=== PATIENT | female | born 1960 | race Caucasian/White ===

== ENCOUNTER → 2019-11-10 12:21 | Outpatient (CLI) | payer BC, SELFPAY ==
--- NOTE | ~2019-11-10 | MM_ITS ---
EXAMINATION: MM screening constance BI w artur HISTORY: Screening TECHNIQUE: Craniocaudal and mediolateral oblique 3-D tomosynthesis images were obtained and synthetic 2-D images were generated. CAD analysis was submitted and interpreted. COMPARISON: Comparison to multiple prior studies sequentially, with oldest reviewed study dated 05/2011. BREAST PARENCHYMAL COMPOSITION: There are scattered areas of fibroglandular density. FINDINGS: There is no evidence of suspicious mass, calcification, or architectural distortion to sugg est malignancy in either breast. There has been no suspicious interval change. IMPRESSION: 1. No mammographic evidence of malignancy. 2. Recommend routine screening mammography in one year. BI-RADS Category 1: Negative Reviewed, dictated and finalized at location A.
== END ==
PROVIDERS: PCP Internal Medicine; Visit Provider Internal Medicine
DX: Z12.31 Encounter for screening mammogram for malignant neoplasm of breast (principal)
CPT/HCPCS: 77063; 77067

== ENCOUNTER → 2020-11-24 10:11 | Outpatient (CLI) | payer BC, SELFPAY ==
--- NOTE | ~2020-11-24 | MM_ITS ---
EXAMINATION: MM screening constance BI w artur HISTORY: Screening mammogram TECHNIQUE: Craniocaudal and mediolateral oblique 3-D tomosynthesis images were obtained and synthetic 2-D images were generated. CAD analysis was submitted and interpreted. COMPARISON: 11/10/2019, 09/02/2018, 07/25/2017 bilateral digital screening mammogram examinations BREAST PARENCHYMAL COMPOSITION: There are scattered areas of fibroglandular density... FINDINGS: Stable bilateral probable intramammary lymph nodes. There is no evidence of suspicious mass , calcification, or architectural distortion to suggest malignancy in either breast. There has been n o suspicious interval change. IMPRESSION: 1. No mammographic evidence of malignancy. 2. Recommend routine screening mammography in one year. BI-RADS Category 2: Benign finding(s). Reviewed, dictated and finalized at location A.
--- NOTE | ~2020-11-24 | DEXA_ITS ---
Bone Density Report Name: Erna Yu Age: 60 Sex: Female Ethnicity: White Date of : 1960 Indication: postmenopausal; screening for osteoporosis; height loss; Referring Provider: JUANCARLOS, KATT Miramontes Study: Bone densitometry was performed. Exam Date: November 24, 2020 Accession number: [id number] Bone Density: Region BMD T-score Z-score Classification AP Spine (L1-L4) 1.034 -0.1 1.3 Normal Femoral Neck (Left) 0.868 0.2 1.4 Normal Total Hip (Left) 1.019 0.6 1.6 Normal Femoral Neck (Right) 0.858 0.1 1.3 Normal Total Hip (Right) 0.977 0.3 1.2 Normal Total Hip Mean 0.998 0.5 1.4 Normal World Health Organization criteria for BMD impression classify patients as: Normal (T-score at or above -1.0), Osteopenia (T-score between -1.0 and -2.5), or Osteoporosis (T-score at or below -2.5). 10-year Fracture Risk: FRAX not reported because: All T-scores for Spine Total, Hip Total, Femoral Neck at or above -1.0 Clinical Information Provided by Patient: Patient maximum height was 69 Menopause Age: 57 Drinks caffeinated beverages Onset of menses at age 12 Number of children 4 Impression: The patient has normal bone mass. Discussion: BONE DENSITY IS ABOVE THE MINIMUM DESIRABLE LEVEL AT ALL SKELETAL SITES TESTED. This patient?s bone mineral density is above the minimum desirable level (T-score -1.0 or better) at all sites measured. The patient should follow a healthful lifestyle (good nutrition with adequate calcium and vitamin D, and appropriate weight-bearing exercise). Follow-Up: Consider repeating this study in 5 years or sooner if there is some new clinical indication. Reported by: JONO on 11/24/2020 10:35:00 AM. Reviewed, dictated and finalized at location A. [facility]
== END ==
PROVIDERS: PCP Internal Medicine; Visit Provider Internal Medicine
DX: Z12.31 Encounter for screening mammogram for malignant neoplasm of breast (principal); Z78.0 Asymptomatic menopausal state
CPT/HCPCS: 77063; 77067; 77080

== ENCOUNTER → 2021-12-07 15:44 | Outpatient (CLI) | payer BC, SELFPAY ==
--- NOTE | ~2021-12-07 | MM_ITS ---
EXAMINATION: MM screening constance BI w artur HISTORY: Screening TECHNIQUE: Craniocaudal and mediolateral oblique 3-D tomosynthesis images were obtained and synthetic 2-D images were generated. CAD analysis was submitted and interpreted. COMPARISON: Comparison to multiple prior studies sequentially, with oldest reviewed study dated 07/25. BREAST PARENCHYMAL COMPOSITION: There are scattered areas of fibroglandular density. FINDINGS: There is no evidence of suspicious mass, calcification, or architectural distortion to sugg est malignancy in either breast. There has been no suspicious interval change. IMPRESSION: 1. No mammographic evidence of malignancy. 2. Recommend routine screening mammography in one year. BI-RADS Category 1: Negative Reviewed, dictated and finalized at location A.
== END ==
PROVIDERS: PCP Internal Medicine; Visit Provider Internal Medicine
DX: Z12.31 Encounter for screening mammogram for malignant neoplasm of breast (principal)
CPT/HCPCS: 77063; 77067

== ENCOUNTER → 2022-12-11 15:44 | Outpatient (CLI) | payer BC, SELFPAY ==
--- NOTE | ~2022-12-11 | MM_ITS ---
EXAMINATION: MM screening constance BI w artur HISTORY: Screening TECHNIQUE: Craniocaudal and mediolateral oblique 3-D tomosynthesis images were obtained and synthetic 2-D images were generated. CAD analysis was submitted and interpreted. COMPARISON: Comparison to multiple prior studies sequentially, with oldest reviewed study dated 07/25. BREAST PARENCHYMAL COMPOSITION: There are scattered areas of fibroglandular density. FINDINGS: There is no evidence of suspicious mass, calcification, or architectural distortion to sugg est malignancy in either breast. There has been no suspicious interval change. IMPRESSION: 1. No mammographic evidence of malignancy. 2. Recommend routine screening mammography in one year. BI-RADS Category 1: Negative Reviewed, dictated and finalized at location A. THERAPIST
== END ==
PROVIDERS: PCP Internal Medicine; Visit Provider Internal Medicine
DX: Z12.31 Encounter for screening mammogram for malignant neoplasm of breast (principal)
CPT/HCPCS: 77063; 77067

== ENCOUNTER 2023-02-26 02:52 | Day surgery (SDC) | payer BC, SELFPAY ==
[2023-02-23 14:58] VITALS: BMI 32.5
[2023-02-26] VITALS (10 sets, daily range): BP systolic 97–125; BP diastolic 55–83; PULSE 82–116; RESP 12–28; TEMP 36.4; O2SAT 95–99
[2023-02-26 10:10] LABS: Basophils Percent Auto 0.5 % (0.2-1.2); Eosinophils Absolute Auto 0.1 K/mm3 (0-0.3); Eosinophils Percent Auto 1.1 % (0-4.4); Hematocrit 44.2 % (37.0-47.0); Hemoglobin 14.3 g/dL (12.0-15.0); Immature Granulocyte Absolute 0.02 K/mm3 (0.00-0.031); Immature Granulocyte Percent A 0.2 % (0-0.5); Lymphocytes Absolute Auto 1.96 K/mm3 (0.9-3.2); Lymphocytes Percent Auto 23.3 % (18.3-44.2); Mean Corpuscular HGB Conc 32.4 g/dl (32-36); Mean Corpuscular Hemoglobin 30.4 pg (26-34); Mean Corpuscular Volume 93.8 fl (80-100); Mean Platelet Volume 10.3 fl (7.4-10.4); Monocytes Absolute Auto 0.7 K/mm3 (0.1-0.6); Monocytes Percent Auto 7.9 % (2.6-8.5); Neutrophils Absolute Auto 5.7 K/mm3 (1.3-6.7); Platelet Count Result 361 k/mm3 (150-375); Red Blood Count 4.71 M/mm3 (4.2-5.4); Red Cell Distribution Width 13.2 % (11.5-14.5); White Blood Count 8.4 K/mm3 (4.5-10.0)
[2023-02-26 10:20] LABS: Magnesium 1.8 mg/dL (1.6-2.3)
[2023-02-26 10:25] LABS: Anion Gap 8 mmol/L (8-16); Blood Urea Nitrogen 17 mg/dL (7-17); Calcium 9.4 mg/dL (8.4-10.2); Carbon Dioxide 27 mmol/L (22-30); Chloride 105 mmol/L (98-107); Estimated CRCL calculation 105 ml/min; Estimated Glomerular Filt Rate > 60; Glucose 109 mg/dL (65-110); Potassium 4.2 mmol/L (3.4-5.0); Sodium 140 mmol/L (137-145)
--- NOTE | 2023-02-26 10:35 | WPDMODSED ---
Moderate Sedation Note-Pt Data Patient Data Diagnosis: Atrial fibrillation Present Complaint: atrial fibrillation Procedure to be performed/Plan: 1. Multiplanar transesophageal echocardiography with color flow, pulse wave Doppler 2. Moderate sedation 3. Electrical cardioversion 4. agitated saline study Allergies Allergy/AdvReac Type Severity Reaction Status Date / Time Penicillins Allergy Mild Hives Verified 02/26/23 09:49 Home Medications Medication Instructions Recorded Confirmed Type metoprolol tartrate 25 mg tablet 25 mg PO BID 02/23/23 02/23/23 History rivaroxaban 20 mg tablet 20 mg PO DAILY 02/23/23 02/23/23 History Current Medications: Active Medications Sodium Chloride (Normal Saline Iv) 1,000 mls @ 30 mls/hr IV CONT .Q24H EMMA Sedation/Anesthesia: No previous sedation/anesthesia problems (including family history). [facility] Past Medical History Medical History Encounter for screening colonoscopy Epigastric pain LUQ pain Social History Social History Smoking status: Never smoker Second hand tobacco smoke exposure: Yes Alcohol intake: current Alcohol use details: 1 drink every 2-3 months Substance use: never Living arrangements: with family Occupation/Education: occupation Gender identity (if verbalized by the patient): Female Spiritual care concerns: No Mod Sed Physical Exam Physical Exam Pre Procedural Exam: Normal: Appearance, Eyes, Ears, Nose, Neck, Throat, Airway, Lungs, Heart Size, Heart Rate, Neuro Exam, Abdomen, Extremities and Skin and Variation: Heart Rhythm ( Irregular irregular) Hours since solid foods: 12 Hours since liquid intake: 12 Mallampati Classification: class II Internal Medicine - PN: Obj Da Vital Signs Vital Signs: Vital Signs - 24 hr 02/26/23 10:04 Temperature 36.4 C Pulse Rate 97 Respiratory Rate 15 Blood Pressure 123/81 Pulse Oximetry 99 Oxygen Delivery Room Air Meds/Results Medications: Active Medications Generic Name Dose Route Start Last Admin Trade Name Freq PRN Reason Stop Dose Admin Sodium Chloride 1,000 mls @ 30 mls/hr 02/26/23 10:00 Normal Saline Iv IV CONT .Q24H EMMA Labs 02/26/23 10:04 02/26/23 10:04 Labs: Laboratory Results - last 24 hr 02/26/23 10:04 WBC 8.4 RBC 4.71 Hgb 14.3 Hct 44.2 MCV 93.8 MCH 30.4 MCHC 32.4 RDW 13.2 Plt Count 361 MPV 10.3 Immature Gran % (Auto) 0.2 Neut % (Auto) 67.0 Lymph % (Auto) 23.3 [place] % (Auto) 7.9 Eos % (Auto) 1.1 Baso % (Auto) 0.5 Lymph # (Auto) 1.96 [place] # (Auto) 0.7 H Eos # (Auto) 0.1 Baso # (Auto) 0.0 Abs Immat Gran (auto) 0.02 Absolute Neuts (auto) 5.7 Absolute Nucleated RBC 0.0 Nucleated RBC % 0.0 Sodium 140 Potassium 4.2 Chloride 105 Carbon Dioxide 27 Anion Gap 8 BUN 17 Creatinine 0.60 L Estim Creat Clear Calc 105 Estimated GFR > 60 Glucose 109 Calcium 9.4 Magnesium 1.8 ASA Classification/Sedation ASA Classification/Sedation ASA Class: II Emergent: No Risks: Risks, benefits and alternatives explained and patient/family accepted plan for sedation. Patient re-evaluated immediately prior to sedation.
--- NOTE | 2023-02-26 11:01 | P.PCNTEECA_ITS ---
RALPH with Cardioversion Date of procedure: 02/26/23 Procedure Type: 1. Multiplanar transesophageal echocardiography with color flow and pulsed wave Doppler 2. Agitated saline study 3. Moderate sedation 4. electrical cardioversion Diagnosis: atrial fibrillation Indications: Atrial fibrillation Description of Procedure: after discussing the risks, benefits alternatives of the procedure patient agreeable via verbal and written informed consent. Risks discussed included esophageal rupture perforation, , stroke, surgery, bleeding, pain, infection, sore throat, skin irritation or burn from the shocked, shocking into more problematic heart rhythm. After time-out was taken after establishing continuous air sampling and monitoring, pulse oxygenation in serial blood pressure assessments, procedure was initiated. Sedation: Hurricaine spray to the hypopharynx x2. 6 mg of Versed and 100 mcg of fentanyl given in divided dosages Procedure start time 10:39 a.m. Procedure stop time 10:55 a.m. Complications: None Blood loss: None Medications were administered patient was monitored by Lilliam dixon RN Findings: RALPH: Normal left ventricular size and function with ejection fraction visually estimated around 60%. Normal right ventricular size and function. Normal right atrial size. Moderate left atrial enlargement. Normal mitral valve with mild mitral regurgitation. Normal tricuspid valve with mild tricuspid regurgitation. The aortic valve is trileaflet and normal with trivial aortic insufficiency. Pulmonic valve is normal with trivial pulmonic insufficiency. No pericardial effusion. Aortic root is normal in size measuring 2.6 cm. Atrial septum is intact without agitated saline or color flow evidence of shunting. left atrial appendage is normal without mass or thrombus in pulse-wave velocities of up to Seventy-five centimeters/second. Cardioversion: After adequate sedation was again confirmed, 150 joules of biphasic synchronized energy was used which did temporarily restore sinus rhythm but then she reverted quickly back into atrial fibrillation. Another 150 joules was used without any success. One last attempt was made using 200 joules of biphasic synchronized energy which again was temporarily successful but ulti mately she reverted back into atrial fibrillation. Conclusion: 1. Normal left ventricular size and function ejection fraction 60% 2. Mild mitral and tricuspid regurgitation 3. Intact atrial septum with negative agitated saline study 4. Normal left atrial appendage without evidence of mass or thrombus 5. 3 attempts at electrical cardioversion were made with only temporary success. 6. Moderate sedation 7. Moderate left atrial enlargement
--- NOTE | 2023-02-26 11:30 | ECG_ITS ---
Measurements Intervals [place] Rate: 102 P: TX: 0 QRS: -33 QRSD: 124 T: 63 QT: 329 QTc: 430 Interpretive Statements ATRIAL FIBRILLATION WITH RAPID VENTRICULAR RESPONSE LEFT AXIS DEVIATION INTRAVENTRICULAR CONDUCTION DELAY CANNOT RULE OUT SEPTAL INFARCT, AGE INDETERMINATE BASELINE ARTIFACT- I, II, III, AVR, AVL, AVF, V1 ABNORMAL ECG NO PREVIOUS ECG AVAILABLE FOR COMPARISON Electronically Signed On 02-26-2023 11:47:31 CAREER AGENT by Jermaine Ibrahim D.O.
== END 2023-02-26 12:08 | disposition home or self-care (01) ==
PROVIDERS: PCP Internal Medicine; Visit Provider Internal Medicine Cardiovascular Disease
PROC: (CPT 93312; principal; 2023-02-26 11:30)
PROC: 5A2204Z Restoration of Cardiac Rhythm, Single (ICD-10-PCS; 2023-02-26 11:30)
DX: I48.91 Unspecified atrial fibrillation (principal); I08.1 Rheumatic disorders of both mitral and tricuspid valves; Z79.01 Long term (current) use of anticoagulants
CPT/HCPCS: 36415; 80048; 83735; 85025; 92960; 93312; 93320; 93325; J2250; J3010; J7030

== ENCOUNTER 2023-05-17 08:55 | Outpatient (CLI) | payer BC, SELFPAY ==
--- NOTE | 2023-05-23 18:01 | WPDHOMESLEEP ---
Sleep Study - Home Unattended Date of Study: 05/17/23 Ordering Provider: Allen De Souza MD Interpreting Provider: Marielle Stevenson, DO Home Sleep Study Type: Watch PAT Height: 1.73 m Weight: 98.43 kg Body Mass Index: 33.0 Neck Circumference (inches): 14.5 Tucker: 2 Reason for Sleep Study Palpitations Sleep History The patient is a 62-year-old female with atrial fibrillation, moderate biatrial enlargement and obesity that had a sleep study ordered by her gaggerman for evaluation of sleep apnea. The patient denies awakening from sleep short of breath. She denies awakening at night with heartburn, belching or cough. She occasionally has trouble sleeping when she has a cold. She denies waking up gasping for air throughout the night. She denies having breathing problems at night observed by herself or others. She rarely sweats excessively at night. She denies having heart palpitations or irregular heartbeats during the night. She denies falling asleep during the day and while driving. She denies sleep paralysis, cataplexy and hypnagogic / hypnopompic hallucinations. She denies having trouble at school or work due to sleepiness. She denies feeling afraid of going to sleep. She denies having nightmares. She occasionally remembers her dreams. She rarely has thoughts racing through her mind. She rarely feels sad or depressed. She occasionally has anxiety. She denies having muscular tension. She denies noticing parts of her body jerk. She denies kicking during the night. She denies having crawling and aching feelings in her legs. She rarely has leg pain during the night. He denies grinding her teeth during sleep and denies awakening with morning jaw pain. She is rarely bothered by pain during the day and rarely awakened by pain during the night. She denies waking up feeling stiff in the morning. She rarely wakes up with sore or achy muscles. She rarely wakes up with pain in the neck, spine and other joints. She goes to bed at 10:00 p.m. on weekdays and between 10:30-11 p.m. on the weekends. It takes her 30 minutes to fall asleep. She wakes up once throughout the night to urinate and is able fall back asleep within 10-30 minutes. She wakes up at 5:15 a.m. on weekdays and at 6:00 a.m. on the weekends. She typically gets 7-7.5 hours of sleep per night. She will stay in bed for 15 minutes after waking up in the morning. She currently lives with her and 2 adult children. She will consume AD caffeinated beverage 2 hours before going to bed. She denies engaging in physical exercise before bedtime. She will watch television before falling asleep. She denies taking naps in the afternoon or the evening. She will have 3 decaffeinated beverages per day. She denies alcohol, tobacco and recreational drug use. [facility] Past Medical History Medical History Encounter for screening colonoscopy Epigastric pain LUQ pain Social History Social History Smoking status: Never smoker Second hand tobacco smoke exposure: Yes Alcohol intake: current Alcohol use details: 1 drink every 2-3 months Substance use: never Living arrangements: with family Occupation/Education: occupation Gender identity (if verbalized by the patient): Female Spiritual care concerns: No Medications Home Medications Medication Instructions Recorded Confirmed Type metoprolol tartrate 25 mg tablet 25 mg PO BID 02/23/23 05/23/23 History rivaroxaban 20 mg tablet 20 mg PO DAILY 02/23/23 05/23/23 History dronedarone 400 mg tablet (Multaq) 400 mg PO DAILY 05/23/23 05/23/23 History Sleep Procedure The sleep study was completed using TrendUT a technically adequate device with seven channels: peripheral arterial tone, actigraphy, body position, snore, respiratory movement, pulse oximetry, sleep staging, and heart rate. P
[2023-05-23 18:03] VITALS: BMI 33.0
== END 2023-05-21 07:30 | disposition home or self-care (01) ==
LOC: ANHCSM 08:57
PROVIDERS: PCP Internal Medicine; Visit Provider Internal Medicine Cardiovascular Disease
DX: I48.19 Other persistent atrial fibrillation (principal); G47.10 Hypersomnia, unspecified; I48.91 Unspecified atrial fibrillation
CPT/HCPCS: 95800

== ENCOUNTER 2023-05-24 00:51 | Day surgery (SDC) | payer BC, SELFPAY ==
[2023-05-23 14:11] VITALS: BMI 32.1
[2023-05-24] VITALS (11 sets, daily range): BP systolic 97–129; BP diastolic 54–90; PULSE 62–90; RESP 12–21; TEMP 36.8; O2SAT 97–100; BMI 32.6
--- NOTE | 2023-05-24 07:00 | ECG_ITS ---
SEE SCANNED COPY FOR CONFIRMED REPORT MTDD
[2023-05-24 08:04] LABS: Alanine Aminotransferase 63 U/L (6-35); Albumin Level 4.6 g/dL (3.5-5.1); Alkaline Phosphatase 86 U/L (38-126); Anion Gap 5 mmol/L (4-12); Aspartate Amino Transferase 38 U/L (14-36); Bilirubin,Total 0.8 mg/dL (0.2-1.3); Blood Urea Nitrogen 15 mg/dL (7-17); Calcium 9.6 mg/dL (8.4-10.2); Carbon Dioxide 29 mmol/L (22-30); Chloride 105 mmol/L (98-107); Estimated CRCL calculation 90 ml/min; Estimated Glomerular Filt Rate > 60; Glucose 105 mg/dL (65-110); Magnesium 1.9 mg/dL (1.6-2.3); Potassium 3.9 mmol/L (3.4-5.0); Sodium 139 mmol/L (137-145)
[2023-05-24] MEDS: SODIUM CHLORIDE 0.9% IV 1,000 ML 30 ML IV CONT (08:09)
--- NOTE | 2023-05-24 08:56 | WPDMODSED ---
Moderate Sedation Note-Pt Data Patient Data Diagnosis: Atrial fibrillation Present Complaint: Atrial fibrillation Procedure to be performed/Plan: Electrical cardioversion Moderate sedation Allergies Allergy/AdvReac Type Severity Reaction Status Date / Time Penicillins Allergy Mild Hives Verified 02/26/23 09:49 Home Medications Medication Instructions Recorded Confirmed Type metoprolol tartrate 25 mg tablet 25 mg PO BID 02/23/23 05/23/23 History rivaroxaban 20 mg tablet 20 mg PO DAILY 02/23/23 05/24/23 History dronedarone 400 mg tablet (Multaq) 400 mg PO DAILY 05/23/23 05/24/23 History Current Medications: Active Medications Sodium Chloride (Normal Saline Iv) 1,000 mls @ 30 mls/hr IV CONT .Q24H EMMA Last Admin: 05/24/23 08:09 Dose: 30 mls/hr Sedation/Anesthesia: No previous sedation/anesthesia problems (including family history). [facility] Past Medical History Medical History Encounter for screening colonoscopy Epigastric pain LUQ pain Social History Social History Smoking status: Never smoker Second hand tobacco smoke exposure: Yes Alcohol intake: current Alcohol use details: 1 drink every 2-3 months Substance use: never Living arrangements: with family Occupation/Education: occupation Gender identity (if verbalized by the patient): Female Spiritual care concerns: No Mod Sed Physical Exam Physical Exam Pre Procedural Exam: Normal: Appearance, Eyes, Ears, Nose, Neck, Throat, Airway, Lungs, Heart Size, Heart Rate, Neuro Exam, Abdomen, Extremities and Skin and Variation: Heart Rhythm (Irregular irregular) Hours since solid foods: 12 Hours since liquid intake: 12 Mallampati Classification: class II Internal Medicine - PN: Obj Da Vital Signs Vital Signs: Vital Signs - 24 hr 05/24/23 07:00 Temperature 36.8 C Pulse Rate 77 Respiratory Rate 18 Blood Pressure 129/90 Pulse Oximetry 99 Oxygen Delivery Room Air Intake/Output Intake/Output: Intake & Output 05/21/23 05/22/23 05/23/23 05/24/23 23:59 23:59 23:59 23:59 Output Total 0 Balance 0 Meds/Results Medications: Active Medications Generic Name Dose Route Start Last Admin Trade Name Freq PRN Reason Stop Dose Admin Sodium Chloride 1,000 mls @ 30 mls/hr 05/24/23 07:00 05/24/23 08:09 Normal Saline Iv IV CONT 30 mls/hr .Q24H EMMA Administration Labs 05/24/23 07:42 Labs: Laboratory Results - last 24 hr 05/24/23 07:42 Sodium 139 Potassium 3.9 Chloride 105 Carbon Dioxide 29 Anion Gap 5 BUN 15 Creatinine 0.70 Estim Creat Clear Calc 90 Estimated GFR > 60 Glucose 105 Calcium 9.6 Magnesium 1.9 Total Bilirubin 0.8 AST 38 H ALT 63 H Alkaline Phosphatase 86 Total Protein 8.0 Albumin 4.6 ASA Classification/Sedation ASA Classification/Sedation ASA Class: II Emergent: No Risks: Risks, benefits and alternatives explained and patient/family accepted plan for sedation. Patient re-evaluated immediately prior to sedation.
--- NOTE | 2023-05-24 09:23 | P.PCNCVR_ITS ---
Cardioversion Cardioversion Date of procedure: 05/24/23 Procedure: Electrical cardioversion Moderate sedation Pre-op diagnosis: Atrial fibrillation Post-op diagnosis: Same Indications: Atrial fibrillation Description of procedure: After discussing the risks, benefits alternatives and she patient agreeable via verbal and written informed consent. Risks discussed included skin irritation or burn, shocking into more problematic heart rhythm, adverse reaction anesthesia, , stroke. After establishing continuous technical director, pulse oxygenation in serial blood pressure assessments, procedure started Procedure start time 9:01 a.m. Procedure stop time 9:23 a.m. Complications none Blood loss none Sedation: A total of 7 mg of Versed and 150 mcg of fentanyl given in divided dosages. Medications were administered and patient was monitored by Humera Aparicio RN Findings: Two attempts were made at restoring sinus rhythm. First attempt was only temporarily successful. Second attempt was not successful at all. One hundred fifty joules of synchronized biphasic energy was utilized on the 1st attempt and then 200 joules was used on the 2nd attempt. Conclusion: Unsuccessful electrical cardioversion in the attempts at restoring sinus rhythm from atrial fibrillation.
== END 2023-05-24 10:31 | disposition home or self-care (01) ==
PROVIDERS: PCP Internal Medicine; Visit Provider Internal Medicine Cardiovascular Disease
PROC: 5A2204Z Restoration of Cardiac Rhythm, Single (ICD-10-PCS; principal; 2023-05-24 08:30)
DX: I48.19 Other persistent atrial fibrillation (principal); G47.10 Hypersomnia, unspecified; E66.9 Obesity, unspecified; Z68.32 Body mass index [BMI] 32.0-32.9, adult; Z79.01 Long term (current) use of anticoagulants; Z79.1 Long term (current) use of non-steroidal anti-inflammatories (NSAID); Z82.49 Family history of ischemic heart disease and other diseases of the circulatory system
CPT/HCPCS: 36415; 80053; 83735; 92960; J2250; J3010; J7030

== ENCOUNTER 2023-08-09 11:00 | Emergency (ER) | payer BC, SELFPAY ==
[2023-08-09 11:01] VITALS: BP 121/69; PULSE 65; RESP 18; TEMP 36.7; O2SAT 97
--- NOTE | 2023-08-09 12:36 | ED.DENTAL ---
HPI - Dental/Oral General Chief complaint: Dental/Oral Stated complaint: dental abscess Time Seen by Provider: 08/09/23 12:06 History of Present Illness HPI Narrative: Patient is a 63-year-old female who presents to the emergency department this afternoon concerned for a dental abscess. Patient states that a few days ago she noted an abscess in her right lower premolar lesion. Patient states that since then the abscess was significantly much larger but has been draining daily since then. Patient states that it feels and looks it is best today and she is here because she would like to be started on antibiotic. Patient admits that she has not seen a dentist in a while as her dentist retired but is going to be seeing a different dentist shortly. Denies any additional symptoms or concerns including any fevers or chills. She is currently denying any pain. Related Data Home Medications Medication Instructions Recorded Confirmed metoprolol tartrate 25 mg tablet 25 mg PO BID 02/23/23 05/23/23 rivaroxaban 20 mg tablet 20 mg PO DAILY 02/23/23 05/24/23 dronedarone 400 mg tablet (Multaq) 400 mg PO BID 05/23/23 05/24/23 Allergies Allergy/AdvReac Type Severity Reaction Status Date / Time Penicillins Allergy Mild Hives Verified 08/09/23 11:49 Review of Systems Review of Systems: All systems are reviewed and are negative unless stated otherwise in the HPI. [facility] Past Medical History Medical History Encounter for screening colonoscopy Epigastric pain LUQ pain Social History Social History Smoking status: Never smoker Second hand tobacco smoke exposure: Yes Alcohol intake: current Alcohol use details: 1 drink every 2-3 months Substance use: never Living arrangements: with family Occupation/Education: occupation Gender identity (if verbalized by the patient): Female Spiritual care concerns: No Exam Narrative: General: Alert, awake, afebrile, in no acute distress. HEENT: PERRL, no rhinorrhea, no post nasal drip, oropharynx clear, dental abscess along the right lower premolar region, no active drainage, no palpable fluctuance or tenderness to palpation. Neck: Trachea midline, no JVD, no lymphadenopathy. Cardiovascular: Regular rate and rhythm, no murmurs, rubs or gallops, no peripheral edema. Respiratory: Clear to auscultation bilaterally, no tachypnea, no wheezing, no rhonchi, no rubs, no respiratory distress. Abdomen: Soft, nontender, nondistended, no rebound, no guarding, no peritoneal signs. Musculoskeletal: No joint swelling or deformity, normal muscle tone. Skin: No rashes or petechia, no signs of infection. Neurological: Alert and oriented to person, place, and time. Follows all commands. No focal deficits, speech is clear and fluent. Course Vital Signs Vital signs: Vital Signs Temperature 98.1 F 08/09/23 11:01 Pulse Rate 65 08/09/23 11:01 Respiratory Rate 18 08/09/23 11:01 Blood Pressure 121/69 08/09/23 11:01 Pulse Oximetry 97 08/09/23 11:01 Oxygen Delivery Room Air 08/09/23 11:01 Temperature 98.1 F 08/09/23 11:01 Pulse Rate 65 08/09/23 11:01 Respiratory Rate 18 08/09/23 11:01 Blood Pressure 121/69 08/09/23 11:01 Pulse Oximetry 97 08/09/23 11:01 Oxygen Delivery Room Air 08/09/23 11:01 MDM - Dental/Oral MDM Narrative Medical decision making narrative: The patient was evaluated by myself in the emergency department. History is obtained from patient who is an independent historian and physical exam was performed. External medical records were reviewed at this time. Patient was administered a dose of clindamycin 450 mg at this times in the emergency department. Differential diagnosis considerations include dental abscess vs dental caries. At this time, patient was recommended blood work and a CT to evaluate the extent of the abscess,
[2023-08-09] MEDS: CLINDAMYCIN HCL 150 MG CAP 450 MG PO (12:48)
== END 2023-08-09 13:05 | disposition home or self-care (01) ==
PROVIDERS: Emergency Provider Emergency Medicine; PCP Internal Medicine
DX: K04.7 Periapical abscess without sinus (principal); Z77.22 Contact with and (suspected) exposure to environmental tobacco smoke (acute) (chronic); Z79.01 Long term (current) use of anticoagulants
CPT/HCPCS: 99283; A9270

== ENCOUNTER 2023-12-18 15:47 | Outpatient (CLI) | payer BC, SELFPAY ==
--- NOTE | ~2023-12-18 | MM_ITS ---
EXAMINATION: MM screening constance BI w artur HISTORY: Screening mammogram TECHNIQUE: Craniocaudal and mediolateral oblique 3-D tomosynthesis images were obtained and synthetic 2-D images were generated. CAD analysis was submitted and interpreted. COMPARISON: 12/11/2022, 12/07/2021, 11/24/2020 BREAST PARENCHYMAL COMPOSITION:Not Dense. There are scattered areas of fibroglandular density. FINDINGS: Stable left breast intramammary lymph node. No suspicious mass, calcification, or senior data warehouse architect ural distortion are identified in either breast to suggest malignancy. There has been no suspicious i nterval change. IMPRESSION: No mammographic evidence of malignancy. Recommend routine screening mammography in one year. BI-RADS Category 2: Benign finding(s). Reviewed, dictated and finalized at location . 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
== END 2023-12-18 15:48 | disposition home or self-care (01) ==
LOC: MICIMG 15:47
PROVIDERS: PCP Internal Medicine; Visit Provider Internal Medicine
DX: Z12.31 Encounter for screening mammogram for malignant neoplasm of breast (principal)
CPT/HCPCS: 77063; 77067

== ENCOUNTER 2024-04-10 07:46 | Outpatient (CLI) | payer BC, SELFPAY ==
--- NOTE | ~2024-04-10 | DEXA_ITS ---
Bone Density Report Name: RAPHAEL AG Age: 63 Sex: Female Ethnicity: White Date of : 1960 Indication: postmenopausal; screening for osteoporosis; height loss; Referring Provider: IRIS*, KATT Miramontes Study: Bone densitometry was performed. Exam Date: April 10, 2024 Accession number: [id number] Bone Density: Region BMD T-score Z-score Classification AP Spine(L1-L4) 0.968 -0.7 0.9 Normal Femoral Neck (Left) 0.818 -0.3 1.1 Normal Total Hip (Left) 0.845 -0.8 0.3 Normal Femoral Neck (Right) 0.837 -0.1 1.3 Normal Total Hip (Right) 0.923 -0.2 0.9 Normal Total Hip Mean 0.884 -0.5 0.6 Normal World Health Organization criteria for BMD impression classify patients as: Normal (T-score at or above -1.0), Osteopenia (T-score between -1.0 and -2.5), or Osteoporosis (T-score at or below -2.5). 10-year Fracture Risk: FRAX not reported because: All T-scores for Spine Total, Hip Total, Femoral Neck at or above -1.0 Clinical Information Provided by Patient: Patient maximum height was 69 Menopause Age: 56 No regular weight bearing exercise Does not regularly consume dairy products Drinks caffeinated beverages Onset of menses at age 12 Number of children 4 Impression: The patient has normal bone mass. Discussion: BONE DENSITY IS ABOVE THE MINIMUM DESIRABLE LEVEL AT ALL SKELETAL SITES TESTED. This patient?s bone mineral density is above the minimum desirable level (T-score -1.0 or better) at all sites measured. The patient should follow a healthful lifestyle (good nutrition with adequate calcium and vitamin D, and appropriate weight-bearing exercise). Follow-Up: Consider repeating this study in 5 years or sooner if there is some new clinical indication. Reported by: IVY on 04/10/2024 8:24:00 AM. Reviewed, dictated and finalized at location ALatrice NUNES
--- OUTSIDE RECORDS SUMMARY | 2024-04-10 07:49 | XMS_ITS | Referral Summary ---
Author Organization [facility] Address [facility] [place] [address] Care Team Providers Care Hand Stamper Name Role Phone Benedict Calhoun MD Primary Care Provider Encounters Date Type Department Care Team Description 03/14/2024 10:15 AM CONSULTING PROPERTY MANAGER [facility] [address] [place] [id number] Marielle Padron NP Persistent atrial fibrillation (HCC) (Primary Dx); Chronic anticoagulation; S/P ablation of atrial fibrillation 02/28/2024 Orders Only [facility] [address] [place] [phone] Massimo Stearns MD from Last 3 Months Allergies Active Allergy Reactions Criticality Noted Date Comments Penicillin Hives,Shortness of breath High 02/06/2023 Patient may still be a candidate for cephalosporins - please investigate & update findings here Medications naproxen (ALEVE) 220 mg tablet Take 1 tablet (220 mg total) by mouth as needed for pain Active metoprolol tartrate (LOPRESSOR) 25 mg immediate release tablet TAKE 1 TABLET(25 MG) BY MOUTH TWICE DAILY 60 tablet 11 01/14/20 24 Active rivaroxaban (Xarelto) 20 mg tablet TAKE 1 TABLET BY MOUTH DAILY WITH BREAKFAST 30 tablet 5 03/13/19 25 Active rivaroxaban (Xarelto) 20 mg tablet TAKE 1 TABLET BY MOUTH DAILY WITH BREAKFAST 30 tablet 11 03/21/19 24 025 Discontinued dofetilide (TIKOSYN) 500 mcg capsuleIndicat ions:cardiac arrhythmia Take 1 capsule (500 mcg total) by mouth 2 (two) times a day 180 capsule 1 02/27/19 25 025 Discontinued(Th erapy completed) Active Problems Problem Noted Date Diagnosed Date S/P ablation of atrial fibrillation 03/14/2024 Elevated LFTs 08/04/2023 Assessment & Plan (08/05/2023 9:29 AM CDT): Chronically mildly elevated LFTs, stable. 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 Viral hep panel neg. - no indication for imaging at this time, can consider on outpatient basis Hypersomnolence 05/04/2023 Chronic anticoagulation 03/20/2023 Atrial fibrillation 02/06/2023 Assessment & Plan (08/27/2023 10:13 AM CDT): Symptomatic persistent atrial fibrillation, refractory to cardioversion, dronedarone, and now dofetilide. I suspect that she has been in persistent atrial fibrillation for a longer time than she realized, with her arrhythmia having only been recognized in January of last year. She is in atrial fibrillation today, but believes dofetilide may have rendered her persistent atrial fibrillation paroxysmal. I have offered her a loop recorder in order to confirm or refute this. If she is continuously in atrial fibrillation, guidelines would suggest discontinuation of antiarrhythmic drug therapy because of lack of efficacy. We discussed further options for treating her atrial arrhythmia, which I distilled to the simple question of continuing to try to restore and maintain sinus rhythm versus accepting atrial fibrillation with rate control. Because of failure of multiple antiarrhythmic drugs, I told the patient that cheondoism of sinus rhythm would hinge upon ablation. We discussed the rationale for atrial fibrillation ablation, including the steps involved in ablation. I detailed the risks of the procedure, including vascular injury/hematoma, myocardial injury/perforation, stroke, myocardial infarction, pulmonary vein stenosis, thermal esophageal injury, phrenic nerve injury and . I estimated a 70% chance of freedom from long-term atrial arrhythmia, and the patient understands that occasionally a second procedure is necessary. I asked her to consider this option, and we will discuss again after the results of her event recorder have been reviewed. CHADS-VASc score is 1. She is presently on anticoagulation, tolerating it well, and we will continue this. From: February CT, Luis Felipe LS, Jessica JS, Mitzi H, Quang ERICA, Radha JE, Barbara EDIE, Boni PT, Tosha MEDELLIN, ME, Isiah KT, Eriberto RL, Wally WG, Celestino PJ, Patricia CM, Traci CW. 2014 AHA/ACC/HRS guideline for the management of patients with atrial fibrillation: a report of the [place] [employer]/[place] Heart Association Task Force on Practice Guidelines and the Heart Rhythm Society. J Am Lowell Cardiol 2014. 6.3. AF Catheter Ablation to Maintain Sinus Rhythm: Recommendations Class I AF catheter ablation is useful for symptomatic paroxysmal AF refractory or intolerant to at least 1 class I or III antiarrhythmic medication when a rhythm control strategy is desired ([phone]). (Level of Evidence: A) Assessment & Plan (08/14/2023 3:46 PM CDT): Persistent AF s/p Tikosyn load 08/2023 Remains in SR on Tikosyn QT interval stable, QTc 446 ms Continue Tikosyn 500 mcg BID Continue metoprolol 25 mg BID Continue Xarelto for stroke risk reduction BMP and Mg this week BMP and EKG locally in 3 months Follow up in 6 months, sooner as needed Assessment & Plan (08/06/2023 9:26 AM CDT): Here for dofetilide load. Now converted to NSR. - EP consulted - no need for DCCV, ok to d/c home with f/u in 1 week - Started dofetilide 500mg q12h - EKG 2 hours after every dose for 5 doses. Please call EP if QTc prolongs by >15% or if QTc is >500 ms. - continue metoprolol, Xarelto Palpitations 02/06/2023 Chest tightness 02/06/2023 Obesity (BMI 30.0-34.9) 02/06/2023 Social History Tobacco Use Types Packs/Day Years Used Date Smoking Tobacco: Never Passive Smoke Exposure: Never Smokeless Tobacco: Never AUDIT-C Answer Date Recorded Q1: How often do you have a drink containing alc ohol? Monthly or less 12/19/2023 Q2: How many drinks containi ng alcohol do you have on a typical day when you are drinking? 1 or 2 12/19/2023 Q3: How often do you have si x or more drinks on one occasion? Never 12/19/2023 Personal Safety Answer Date Recorded Have you ever been in or are you currently in a harmful physical or emotional relationship or is someone making you feel afraid or unsafe? Denies 12/19/2023 Comments Unknown Sex and Gender Information Value Date Recorded Sex Assigned at Not on file Legal Sex Female 10:47 AM CONSULTING PROPERTY MANAGER Gender Identity Not on file Sexual Orientation Not on file Last Filed Vital Signs Vital Sign Reading Time Taken Comments Blood Pressure 130/82 03/14/2024 9:51 AM CONSULTING PROPERTY MANAGER Pulse 59 03/14/2024 9:51 AM CONSULTING PROPERTY MANAGER Temperature 36.4 C (97.5 F) 12/19/2023 10:30 AM CONSULTING PROPERTY MANAGER Respiratory Rate 19 12/19/2023 10:32 AM CONSULTING PROPERTY MANAGER Oxygen Saturation 96% 12/19/2023 12:35 PM CONSULTING PROPERTY MANAGER Inhaled Oxygen Concentration - - Weight 102.1 kg (225 lb) 03/14/2024 9:51 AM CONSULTING PROPERTY MANAGER Height 175.3 cm (5' 9 ) 03/14/2024 9:51 AM CONSULTING PROPERTY MANAGER Body Mass Index 33.23 03/14/2024 9:51 AM CONSULTING PROPERTY MANAGER Plan of Treatment Not on file Medical Devices Implanted Type Area Fish Farm Manager Device Identifier Shelf Expiration Date Model / Serial / Lot [employer] Vascade Mvp 6-12fr Venous Closure [id number] - [id number] - [id number] Implanted:Qty: 1 on 12/19/2023 by Massimo Stearns MD at [facility] [employer] 09/03/2025 800-612C-1 0U / [id number] / [id number] [employer] Device Vascular Closure Femoral Artery Bioabsorbable Dual Method Vascade 6-7fr Collagen [id number] - [id number] - [id number] Implanted:Qty: 1 on 12/19/2023 by Massimo Stearns MD at [facility] Collagen [employer] 09/26/2025 700-580I-0 5U / [id number] / [id number] [employer] Vascade Mvp 6-12fr Venous Closure [id number] - [id number] - [id number] Implanted:Qty: 1 on 12/19/2023 by Massimo Stearns MD at [facility] [employer] 10/09/2025 800-612C-1 0U / [id number] / [id number] [employer] Device Vascular Closure Vascade Mvp Xl 10-12fr Venous Strl 800-1012xl - [id number] - [id number] Implanted:Qty: 1 on 12/19/2023 by Massimo Stearns MD at [facility] [employer] 10/02/2025 800-1012XL / [id number] / [id number] Procedures Procedure Name Priority Date/Time Associated Diagnosis Comments ECG 12-LEAD Routine 03/14/2024 10:08 AM CONSULTING PROPERTY MANAGER Persistent atrial fibrillation (HCC) HEPATITIS C ANTIBODY Routine 08/05/2023 4:25 AM CDT from Last 3 Months or Most Recently Relevant to Health Maintenance Results * ECG 12 lead (03/14/2024 10:08 AM CONSULTING PROPERTY MANAGER) us Marielle Padron NP ECG ORDERABLES Lulú l Result * Hepatitis C antibody Blood (08/05/2023 4:25 AM CDT) Hep C Ab Nonreactive Nonreactive Comment:Antibodies to HCV no t detected. Does NOT exclude the possibility of recent exposure to HCV. Current interpretive data was last revised on 21 Blood 08/05/2023 4:25 AM CDT 08/05/2023 5:34 AM CDT us Rowan Veliz MD LAB MICROBIOLOGY - GENERAL ORDER RACHEL Final Result [facility] Department [place] [address] from Last 3 Months or Most Recently Relevant to Health Maintenance Insurance [employer] Advance Directives For more information, please contact: [phone] * Full Code (Latest Code Status on File) Date Activated Date Inactivated Comments 08/03/2023 2:45 PM 08/06/2023 3:01 PM Care Teams Hand Stamper Relationship Specialty Start Date End Date Benedict Calhoun MD PCP - General Internal Medicine 09/19/17
--- OUTSIDE RECORDS SUMMARY | 2024-04-10 07:49 | XMS_ITS | Clinical Summary ---
Author Organization [facility] Address [address] [place] [address] Care Team Providers Care Oven Dumper Name Role Phone Benedict Calhoun MD Primary Care Provider Allergies Active Allergy Reactions Criticality Noted Date [...] day 180 capsule 1 02/27/19 25 025 Discontinued( erapy completed) Active Problems Problem Noted Date [...] antiarrhythmic drugs, I told the patient that hoahaoism of sinus rhythm would hinge upon ablation. [...] well, and we will continue this. From: February, Luis Felipe LS, Jessica JS, Mitzi H, Quang ERICA, Radha JE, Barbara EDIE, Boni PT, Tosha MEDELLIN, ME, Isiah KT, Eriberto RL, Wally WG, Celestino PJ, Patricia CM, Traci CW. 2014 AHA/ACC/HRS guideline for the management of patients with atrial fibrillation: a report of the [place] [employer]/[place] Heart Association Task Force on Practice Guidelines [...] Chest tightness 02/06/2023 Obesity (BMI 30.0-34.9) 02/06/2023 Encounters Date Type Department Care Team Description 03/14/2024 10:15 AM DIRECTOR OF GOLF Office Visit [facility] [address] [facility] [address] [address] Marielle Padron NP Persistent atrial fibrillation (HCC) (Primary Dx); Chronic anticoagulation; S/P ablation of atrial fibrillation 02/28/2024 Orders Only [facility] [address] [facility] [address], [place] [address] Massimo Stearns MD from Last 3 Months Surgical History Surgery Date Site/Laterality Comments ANKLE SURGERY TUBAL LIGATION FRACTURE SURGERY 1980 Medical History Medical History Date Comments Brain concussion Mat 2018 Family History Medical History Relation Name Comments No Known Problems Brother Heart failure Father Atrial fibrillation Mother Blanca Gonzalez Miscarriages / Stillbirths Mother Blanca Gonzalez Rashes / Skin problems Son Delfin Ag Relation Name Status Comments Brother Alive Father Alive Mother Blanca Gonzalez Alive Son Delfin Ag Social History Tobacco Use Types Packs/Day Years [...] on file Legal Sex Female 10:47 AM DIRECTOR OF GOLF Gender Identity Not on file Sexual Orientation Not on file Obstetrics History Last Filed Vital Signs Vital Sign Reading Time Taken Comments Blood Pressure 130/82 03/14/2024 9:51 AM DIRECTOR OF GOLF Pulse 59 03/14/2024 9:51 AM DIRECTOR OF GOLF Temperature 36.4 C (97.5 F) 12/19/2023 10:30 AM DIRECTOR OF GOLF Respiratory Rate 19 12/19/2023 10:32 AM DIRECTOR OF GOLF Oxygen Saturation 96% 12/19/2023 12:35 PM DIRECTOR OF GOLF Inhaled Oxygen Concentration - - Weight 102.1 kg (225 lb) 03/14/2024 9:51 AM DIRECTOR OF GOLF Height 175.3 cm (5' 9 ) 03/14/2024 9:51 AM DIRECTOR OF GOLF Body Mass Index 33.23 03/14/2024 9:51 AM DIRECTOR OF GOLF Plan of Treatment Health Maintenance Due Date Last Done Comments Breast Cancer Screening-Mammogram 1961 Cervical Cancer Screening 1961 Colon Cancer Screening-Colonoscopy 1961 Depression Screening 1961 DTaP/Tdap/Td Vaccine (1 - Tdap) 1972 Hepatitis B Screening 05/15/1979 Regular Well Visit/Exam 18-64 05/15/1979 Influenza Vaccine (#1) 2023 Zoster Vaccine Completed 09/03/2017, 09/03/2017, 03/24/2017 Hepatitis C Screening Completed 08/05/2023 Pneumococcal vaccine <65 Aged Out No longer eligible based on patient's age to complete this topic Medical Devices Implanted Type Area Home Theatre Technician Device Identifier Shelf Expiration Date Model / Serial / Lot [employer] Vascade Mvp 6-12fr Venous Closure [id number] - [id number] - [id number] Implanted:Qty: 1 on 12/19/2023 by Massimo Stearns MD at [facility] Collagen [employer] 09/03/2025 800-612C-1 0U / [id number] / [id number] [employer] Device Vascular Closure Femoral Artery Bioabsorbable Dual Method Vascade 6-7fr Collagen [id number] - [id number] - [id number] Implanted:Qty: 1 on 12/19/2023 by Massimo Stearns MD at [facility] Coll[employer] 09/26/2025 700-580I-0 5U / [id number] / [id number] [employer] Vascade Mvp 6-12fr Venous Closure [id number] - [id number] - [id number] Implanted:Qty: 1 on 12/19/2023 by Massimo Stearns MD at [facility] Coll[employer] 10/09/2025 800-612C-1 0U / [id number] / [id number] [employer] Device Vascular Closure Vascade Mvp Xl 10-12fr Venous Strl 800-1012xl - [id number] - [id number] Implanted:Qty: 1 on 12/19/2023 by Massimo Stearns MD at [facility] [employer] 10/02/2025 800-1012XL / [id number] / [id number] Procedures Procedure Name Priority Date/Time Associated Diagnosis Comments ECG 12-LEAD Routine 03/14/2024 10:08 AM DIRECTOR OF GOLF Persistent atrial fibrillation (HCC) HEPATITIS C ANTIBODY Routine 08/05/2023 4:25 AM CDT from Last 3 Months or Most Recently Relevant to Health Maintenance Results * ECG 12 lead (03/14/2024 10:08 AM DIRECTOR OF GOLF) Marielle Padron NP ECG ORDERABLES Lulú l Result * Hepatitis C antibody Blood (08/05/2023 4:25 AM CDT) Hep C Ab Nonreactive Nonreactive Comment:Antibodies to HCV no t detected. Does NOT exclude the possibility of recent exposure to HCV. Current interpretive data was last revised on 21 Blood 08/05/2023 4:25 AM CDT 08/05/2023 5:34 AM CDT Rowan Veliz MD LAB MICROBIOLOGY - GENERAL ORDER RACHEL Final Result Performing Organization Address City/State/[facility] Co de Phone Number [facility] [place] [address] from Last 3 Months or Most Recently Relevant to Health Maintenance Insurance [employer] Advance Directives For more information, please contact: [phone] * Full Code (Latest Code Status on File) Date Activated Date Inactivated Comments 08/03/2023 2:45 PM 08/06/2023 3:01 PM Care Teams Oven Dumper Relationship Specialty Start Date End Date Benedict Calhoun MD PCP - General Internal Medicine 09/19/17
--- OUTSIDE RECORDS SUMMARY | 2024-04-10 07:50 | XMS_ITS | Data Portability ---
Author Organization [place] [facility], Main Office Address [address] [place] [address] Assessment No assessment recorded. Plan of Treatment Reminders Order Date Submit Date Provider Last Modified By Organization Details Last Modified Time Details Appointments None recorded. Lab lipase, serum or plasma 023 023 [facility], [address] [place], [address], 3 07:57:32 amylase + lipase, serum 023 023 [email or web address] [facility], [address] [place], [address], 3 15:38:09 CBC w/ auto diff 023 023 [facility], [address] [place], [address], 3 07:57:29 CMP, serum or plasma 023 023 [facility], [address] [place], [address], 3 07:57:28 vitamin D, 25-hydrox y, total, serum 023 023 [facility], [address] [place], [address], 3 07:57:31 TSH, serum or plasma 023 023 [facility], [address] [place], [address], 3 07:57:30 T4, free, serum 023 023 [facility] - Outpatient Lab, [address] [place], [address], 3 07:57:29 lipid panel, serum 023 023 [facility] - Outpatient Lab, [address] [place], [address], 3 07:57:27 Referral None recorded. Procedures None recorded. Surgeries None recorded. Imaging None recorded. Medication Orders None recorded. Patient TargetsNo targets recorded. Patient Instructions Encounter Date Encounter Id Patient Instructions Last Modified By Organization Details Last Modified Time 10/18/2022 [id number] Abdominal pain etiology which obscure. Plan is to continue on current regimen. Will check CBC, CMP, lipid, thyroid, lipase and vitamin-D level. Will try to set up for a CT scan of the abdomen and pelvis without contrast. Proceed with further evaluation and management pending those results. Portions of the record may have been created with voice recognition software. Occasional wrong-word or dgogb-o-esrp substitutions may have occurred due to the inherent limitations of voice recognition software. Read the chart carefully and recognize, using context, where substitutions have occurred. CT scan of the abdomen and pelvis for chronic left upper and left lower quadrant abdominal pain Next Appt: 6 Months Approximate Date: 04/16/2023 Not available 10/18/2022 11:01:34 11/27/2022 [id number] Medic palpitations-hyperl ipidemia -obesity class one. Will set up with cardiology for further evaluation for possible atrial fibrillation. EKG performed in the office shows an irregular rhythm were P waves are not definitely identified. May represent either atrial flutter atrial fibrillation or sinus arrhythmia or sinus tachycardia with frequent premature atrial contractions.Iimuno Portions of the record may have been created with voice recognition software. Occasional wrong-word or dqmkv-d-capl substitutions may have occurred due to the inherent limitations of voice recognition software. Read the chart carefully and recognize, using context, where substitutions have occurred. Cardiology consult for possible paroxysmal atrial fibrillation Next Appt: 4 Months Approximate Date: 03/27/2023 [email or web address] Not available 11/27/2022 17:52:32 10/15/2023 [id number] Follow-up for paroxysmal atrial fibrillation, hyperlipidemia obesity class one all clinically stable. He is getting blood work done on a regular basis by Cardiology at this time. Is being scheduled for possible ablation for her atrial fibrillation. Is currently doing well otherwise. No interval complaints of any chest pain, shortness of breath or any other cardiovascular complaints. Is due for bone density scan which he already has scheduled. Follow-up in six months Additional Orders - Directives - Recommendations 1. DEXA Scan Next Appointment: 6 Months Approximate Date: 04/12/2024 Portions of the record may have been created with voice recognition software. Occasional wrong-word or ivegt-j-ttko substitutions may have occurred due to the inherent limitations of voice recognition software. Read the chart carefully and recognize, using context, where substitutions have occurred. [email or web address] Not available 10/15/2023 17:09:44 Reason for Referral None Reported. Results Created Date Observation Date Name Description Value Unit Range Abnormal Flag Note LastModifiedBy Organization Detail LastModifiedTime 03/21/19 23 03/21/2022 COLOG UARD cologuard result cancel led - order d not applic able Not Available [facility] (Cologuard Orders Only) [address], [place], [address], 03/21/2022 09:03:43 10/21/19 22 10/21/2021 VITAM IN D,25- OH,TO SHIRA,I A vitamin D,25-oh,tota l,ia 38 NG/mL 30-100 normal Vitam in D Statu s 25-OH Vitam in D: Defic iency : <20 ng/mL Insuf ficie ncy: 20 - 29 ng/mL Optim al: > or = 30 ng/mL For 25-OH Vitam in D testi ng on patie nts on D2-russ pplem entat ion and patie nts for whom quant itati on of D2 and D3 fract ions is requi red, the [facility] Assur eD(TM ) 25-OH VIT D, (D2,D 3), LC/MS /MS is recom leonard d: order code 08099 (sarina ents >2yrs ). See Note 1 Note 1 For addit ional infor suresh garcia e refer to http: //[facility] esteban tom ics.c om/fa q/FAQ 199 (This link is being provi ded for infor ehsan florian/ cooper delacruz purpo ses only. ) Not Available [address], [address], 10/21/2021 07:25:52 10/21/19 22 10/21/2021 TSH TSH 2.41 mIU/L 0.40-4 .50 normal Not Available [address], [address], 10/21/2021 07:25:51 10/21/19 22 10/21/2021 T4, FREE T4, free 1.2 NG/dL 0.8-1. 8 normal Not Available [address], [address], 10/21/2021 07:25:50 10/21/19 22 10/21/2021 CBC (INCL UDES DIFF/ PLT) white blood cell count 6.2 thous and/u L 3.8-10 .8 normal Not Available [address], [address], 10/21/2021 07:25:49 10/21/1910/21/2021 CBC (INCL UDES DIFF/ PLT) red blood cell count 4.75 roosevelt on/uL 3.80-5 .10 normal Not Available [facility] [address], [address], 10/21/2021 07:25:49 10/21/19 22 10/21/2021 CBC (INCL UDES DIFF/ PLT) hemoglobin 14.3 g/dL 11.7-1 5.5 normal Not Available [facility] [address], [address], 10/21/2021 07:25:49 10/21/19 22 10/21/2021 CBC (INCL UDES DIFF/ PLT) hematocrit 43.2 % 35.0-4 5.0 normal Not Available [address], [address], 10/21/2021 07:25:49 10/21/1910/21/2021 CBC (INCL UDES DIFF/ PLT) MCV 90.9 fL 80.0-1 00.0 normal Not Available [address], [address], 10/21/2021 07:25:49 10/21/1910/21/2021 CBC (INCL UDES DIFF/ PLT) MCH 30.1 pg 27.0-3 3.0 normal Not Available [address], [address], 10/21/2021 07:25:49 10/21/1910/21/2021 CBC (INCL UDES DIFF/ PLT) MCHC 33.1 g/dL 32.0-3 6.0 normal Not Available [address], [address], 10/21/2021 07:25:49 10/21/1910/21/2021 CBC (INCL UDES DIFF/ PLT) RDW 13.2 % 11.0-1 5.0 normal Not Available [address], [address], 10/21/2021 07:25:49 10/21/1910/21/2021 CBC (INCL UDES DIFF/ PLT) platelet count 338 thous and/u L 140-40 0 normal Not Available [address], [address], 10/21/2021 07:25:49 10/21/19 22 10/21/2021 CBC (INCL UDES DIFF/ PLT) MPV 10.8 fL 7.5-12 .5 normal Not Available [address], [address], 10/21/2021 07:25:49 10/21/19 22 10/21/2021 CBC (INCL UDES DIFF/ PLT) absolute neutrophils 2734 cells /uL 1500-7 800 normal Not Available [address], [address], 10/21/2021 07:25:49 10/21/19 22 10/21/2021 CBC (INCL UDES DIFF/ PLT) absolute lymphocytes 2480 cells /uL 850-39 00 normal Not Available [address], [address], 10/21/2021 07:25:49 10/21/19 22 10/21/2021 CBC (INCL UDES DIFF/ PLT) absolute monocytes 756 cells /uL 200-95 0 normal Not Available [address], [address], 10/21/2021 07:25:49 10/21/19 22 10/21/2021 CBC (INCL UDES DIFF/ PLT) absolute eosinophils 198 cells /uL 15-500 normal Not Available [address], [address], 10/21/2021 07:25:49 10/21/19 22 10/21/2021 CBC (INCL UDES DIFF/ PLT) absolute basophils 31 cells /uL 0-200 normal Not Available [facility] [address], [address], 10/21/2021 07:25:49 10/21/19 22 10/21/2021 CBC (INCL UDES DIFF/ PLT) neutrophils 44.1 % normal Not Available [address], [address], 10/21/2021 07:25:49 10/21/19 22 10/21/2021 CBC (INCL UDES DIFF/ PLT) lymphocytes 40.0 % normal Not Available [address], [address], 10/21/2021 07:25:49 10/21/19 22 10/21/2021 CBC (INCL UDES DIFF/ PLT) monocytes 12.2 % normal Not Available [facility] [address], [address], 10/21/2021 07:25:49 10/21/19 22 10/21/2021 CBC (INCL UDES DIFF/ PLT) eosinophils 3.2 % normal Not Available [facility] [address], [address], 10/21/2021 07:25:49 10/21/19 22 10/21/2021 CBC (INCL UDES DIFF/ PLT) basophils 0.5 % normal Not Available [address], [address], 10/21/2021 07:25:49 10/21/19 22 10/21/2021 COMPR EHENS ANDREW METAB OLIC PANEL creatinine 0.56 mg/dL 0.50-1 .05 normal Not Available [address], [address], 10/21/2021 07:25:48 10/21/1910/21/2021 COMPR EHENS ANDREW METAB OLIC PANEL glucose 100 mg/dL 65-99 high Fasti ng refer ence inter la For someo ne witho ut known diabe tree, a gluco se value betwe en 100 and 125 mg/dL is consi stent with predi abete s and shoul d be confi rmed with a follo w-up test. Not Available [address], [address], 10/21/2021 07:25:48 10/21/1910/21/2021 COMPR EHENS ANDREW METAB OLIC PANEL urea nitrogen (BUN) 13 mg/dL 7-25 normal Not Available [address], [address], 10/21/2021 07:25:48 10/21/19 22 10/21/2021 COMPR EHENS ANDREW METAB OLIC PANEL eGFR 104 mL/mi n/1.7 3m2 > or = 60 normal The eGFR is based on the CKD-E PI 2020 equat ion. To calcu late the new eGFR from a previ ous Creat inine or Cysta tin C resul t, go to https ://storm leal.david parker.o young/fernando hou s/ kdoqi /gfr% 5Fcal culat or Not Available [address], [address], 10/21/2021 07:25:48 10/21/19 22 10/21/2021 COMPR EHENS ANDREW METAB OLIC PANEL BUN/creatini ne ratio not applic able (calc ) 6-22 Not Available [address], [address], 10/21/2021 07:25:48 10/21/19 22 10/21/2021 COMPR EHENS ANDREW METAB OLIC PANEL sodium 141 mmol/ L 135-14 6 normal Not Available [address], [address], 10/21/2021 07:25:48 10/21/19 22 10/21/2021 COMPR EHENS ANDREW METAB OLIC PANEL potassium 4.7 mmol/ L 3.5-5. 3 normal Not Available [address], [address], 10/21/2021 07:25:48 10/21/19 22 10/21/2021 COMPR EHENS ANDREW METAB OLIC PANEL chloride 104 mmol/ L 98-110 normal Not Available [address], [address], 10/21/2021 07:25:48 10/21/19 22 10/21/2021 COMPR EHENS ANDREW METAB OLIC PANEL carbon dioxide 32 mmol/ L 20-32 normal Not Available [address], [address], 10/21/2021 07:25:48 10/21/19 22 10/21/2021 COMPR EHENS ANDREW METAB OLIC PANEL calcium 9.6 mg/dL 8.6-10 .4 normal Not Available [address], [address], 10/21/2021 07:25:48 10/21/19 22 10/21/2021 COMPR EHENS ANDREW METAB OLIC PANEL protein, total 6.9 g/dL 6.1-8. 1 normal Not Available [address], [address], 10/21/2021 07:25:48 10/21/19 22 10/21/2021 COMPR EHENS ANDREW METAB OLIC PANEL albumin 4.2 g/dL 3.6-5. 1 normal Not Available [address], [address], 10/21/2021 07:25:48 10/21/19 22 10/21/2021 COMPR EHENS ANDREW METAB OLIC PANEL globulin 2.7 g/dL_ (calc ) 1.9-3. 7 normal Not Available [address], [address], 10/21/2021 07:25:48 10/21/19 22 10/21/2021 COMPR EHENS ANDREW METAB OLIC PANEL albumin/glob ulin ratio 1.6 (calc ) 1.0-2. 5 normal Not Available [address], [address], 10/21/2021 07:25:48 10/21/19 22 10/21/2021 COMPR EHENS ANDREW METAB OLIC PANEL bilirubin, total 0.5 mg/dL 0.2-1. 2 normal Not Available [address], [address], 10/21/2021 07:25:48 10/21/19 22 10/21/2021 COMPR EHENS ANDREW METAB OLIC PANEL alkaline phosphatase 70 U/L 37-153 normal Not Available [address], [address], 10/21/2021 07:25:48 10/21/19 22 10/21/2021 COMPR EHENS ANDREW METAB OLIC PANEL AST 23 U/L 10-35 normal Not Available [address], [address], 10/21/2021 07:25:48 10/21/19 22 10/21/2021 COMPR EHENS ANDREW METAB OLIC PANEL ALT 31 U/L 6-29 high Not Available [address], [address], 10/21/2021 07:25:48 10/21/19 22 10/21/2021 LIPID PANEL , STAND MARILEE cholesterol, total 202 mg/dL <200 high Not Available [address], [address], 10/21/2021 07:25:48 10/21/19 22 10/21/2021 LIPID PANEL , STAND MARILEE HDL cholesterol 65 mg/dL > or = 50 normal Not Available [address], [address], 10/21/2021 07:25:48 10/21/19 22 10/21/2021 LIPID PANEL , STAND MARILEE triglyceride s 78 mg/dL <150 normal Not Available [address], [address], 10/21/2021 07:25:48 10/21/19 22 10/21/2021 LIPID PANEL , STAND MARILEE LDL-choleste rol 120 mg/dL _(kimmy c) high Refer ence range : <100 Tasneem able range <100 mg/dL for prima ry preve ntion ; <70 mg/dL for patie nts with CHD or diabe tic patie nts with > or = 2 CHD risk facto rs. LDL-C is now calcu lated using the Lela n-Hop kins calcu oscar n, which is a valid ated novel metho d provi ding zack r accur acy than the Fried amadou equat ion in the estim ation of LDL-C . Lela laguna SS et al. PÉREZ. 2013; 310(1 9): 2061- 2068 (http ://ed ucati on.TellFi. Talisma/f aq/FA Q164) Not Available [facility] [address], [address], 10/21/2021 07:25:48 10/21/19 22 10/21/2021 LIPID PANEL , STAND MARILEE chol/HDLC ratio 3.1 (calc ) <5.0 normal Not Available [facility] [address], [address], 10/21/2021 07:25:48 10/21/19 22 10/21/2021 LIPID PANEL , STAND MARILEE non HDL cholesterol 137 mg/dL _(kimmy c) <130 high For patie nts with diabe tree plus 1 major ASCVD risk facto r, treat ing to a non-H DL-C goal of <100 mg/dL (LDL- C of <70 mg/dL ) is consi amarilisd a therhumberto pesidney c optio n. Not Available [facility] [address] [address] [place], [address], 10/21/2021 07:25:48 10/19/19 23 10/19/2022 LIPID PANEL , STAND MARILEE cholesterol, total 202 mg/dL <200 high Not Available [facility] [address] [place], [address], 10/19/2022 07:57:27 10/19/19 23 10/19/2022 LIPID PANEL , STAND MARILEE HDL cholesterol 62 mg/dL > or = 50 normal Not Available [facility] [address] [place], [address], 10/19/2022 07:57:27 10/19/19 23 10/19/2022 LIPID PANEL , STAND MARILEE triglyceride s 59 mg/dL <150 normal Not Available [address], [address], 10/19/2022 07:57:27 10/19/19 23 10/19/2022 LIPID PANEL , STAND MARILEE LDL-choleste rol 125 mg/dL _(kimmy c) high Refer ence range : <100 Tasneem able range <100 mg/dL for prima ry preve ntion ; <70 mg/dL for patie nts with CHD or diabe tic patie nts with > or = 2 CHD risk facto rs. LDL-C is now calcu lated using the Lela n-Hop kins calcu oscar n, which is a valid ated novel vicky gil than the Fried amadou equat ion in the estim ation of LDL-C . Lela laguna SS et al. PÉREZ. 2013; 310(1 9): 2061- 2068 (http ://ed ucati on.Eduin ellis [employer]. com/f aq/FA Q164) Not Available [facility] [address] [place], [address], 10/19/2022 07:57:27 10/19/19 23 10/19/2022 LIPID PANEL , STAND MARILEE chol/HDLC ratio 3.3 (calc ) <5.0 normal Not Available [facility] [id number] [place] [address], [address], 10/19/2022 07:57:27 10/19/19 23 10/19/2022 LIPID PANEL , STAND MARILEE non HDL cholesterol 140 mg/dL _(kimmy c) <130 high For patie nts with diabe tree plus 1 major ASCVD risk facto r, treat ing to a non-H DL-C goal of <100 mg/dL (LDL- C of <70 mg/dL ) is isreal rowan optio n. Not Available [address] [address] [place], [address], 10/19/2022 07:57:27 10/19/19 23 10/19/2022 COMPR EHENS ANDREW METAB OLIC PANEL glucose 90 mg/dL 65-99 normal Fasti ng refer ence inter la Not Available [address] [place], [address], 10/19/2022 07:57:28 10/19/19 23 10/19/2022 COMPR EHENS ANDREW METAB OLIC PANEL urea nitrogen (BUN) 13 mg/dL 7-25 normal Not Available [address] [address] [place], [address], 10/19/2022 07:57:28 10/19/19 23 10/19/2022 COMPR EHENS ANDREW METAB OLIC PANEL creatinine 0.53 mg/dL 0.50-1 .05 normal Not Available [address], [address], 10/19/2022 07:57:28 10/19/19 23 10/19/2022 COMPR EHENS ANDREW METAB OLIC PANEL eGFR 105 mL/mi n/1.7 3m2 > or = 60 normal Not Available [address] [place], [address], 10/19/2022 07:57:28 10/19/19 23 10/19/2022 COMPR EHENS ANDREW METAB OLIC PANEL BUN/creatini ne ratio SEE NOTE: (calc ) 6-22 Not Repor maria luisa: BUN and Creat inine are withi n refer ence range . Not Available [address], [address], 10/19/2022 07:57:28 10/19/19 23 10/19/2022 COMPR EHENS ANDREW METAB OLIC PANEL sodium 137 mmol/ L 135-14 6 normal Not Available [address], [address], 10/19/2022 07:57:28 10/19/19 23 10/19/2022 COMPR EHENS ANDREW METAB OLIC PANEL potassium 4.1 mmol/ L 3.5-5. 3 normal Not Available [address], [address], 10/19/2022 07:57:28 10/19/19 23 10/19/2022 COMPR EHENS ANDREW METAB OLIC PANEL chloride 100 mmol/ L 98-110 normal Not Available [address], [address], 10/19/2022 07:57:28 10/19/1910/19/2022 COMPR EHENS ANDREW METAB OLIC PANEL carbon dioxide 32 mmol/ L 20-32 normal Not Available [address], [address], 10/19/2022 07:57:28 10/19/19 23 10/19/2022 COMPR EHENS ANDREW METAB OLIC PANEL calcium 9.5 mg/dL 8.6-10 .4 normal Not Available [address], [address], 10/19/2022 07:57:28 10/19/19 23 10/19/2022 COMPR EHENS ANDREW METAB OLIC PANEL protein, total 7.1 g/dL 6.1-8. 1 normal Not Available [address], [address], 10/19/2022 07:57:28 10/19/19 23 10/19/2022 COMPR EHENS ANDREW METAB OLIC PANEL albumin 4.3 g/dL 3.6-5. 1 normal Not Available [address], [address], 10/19/2022 07:57:28 10/19/1910/19/2022 COMPR EHENS ANDREW METAB OLIC PANEL globulin 2.8 g/dL_ (calc ) 1.9-3. 7 normal Not Available [address], [address], 10/19/2022 07:57:28 10/19/19 23 10/19/2022 COMPR EHENS ANDREW METAB OLIC PANEL albumin/glob ulin ratio 1.5 (calc ) 1.0-2. 5 normal Not Available [address], [address], 10/19/2022 07:57:28 10/19/19 23 10/19/2022 COMPR EHENS ANDREW METAB OLIC PANEL bilirubin, total 0.7 mg/dL 0.2-1. 2 normal Not Available [address], [address], 10/19/2022 07:57:28 10/19/19 23 10/19/2022 COMPR EHENS ANDREW METAB OLIC PANEL alkaline phosphatase 79 U/L 37-153 normal Not Available [address] [address] [place], [address], 10/19/2022 07:57:28 10/19/1910/19/2022 COMPR EHENS ADNREW METAB OLIC PANEL AST 27 U/L 10-35 normal Not Available [address], [address], 10/19/2022 07:57:28 10/19/1910/19/2022 COMPR EHENS ANDREW METAB OLIC PANEL ALT 45 U/L 6-29 high Not Available [address], [address], 10/19/2022 07:57:28 10/19/1910/19/2022 CBC (INCL UDES DIFF/ PLT) white blood cell count 7.0 thous and/u L 3.8-10 .8 normal Not Available [address], [address], 10/19/2022 07:57:28 10/19/1910/19/2022 CBC (INCL UDES DIFF/ PLT) red blood cell count 4.82 roosevelt on/uL 3.80-5 .10 normal Not Available [address], [address], 10/19/2022 07:57:28 10/19/1910/19/2022 CBC (INCL UDES DIFF/ PLT) hemoglobin 14.4 g/dL 11.7-1 5.5 normal Not Available [address], [address], 10/19/2022 07:57:28 10/19/1910/19/2022 CBC (INCL UDES DIFF/ PLT) hematocrit 44.7 % 35.0-4 5.0 normal Not Available [address], [address], 10/19/2022 07:57:28 10/19/1910/19/2022 CBC (INCL UDES DIFF/ PLT) MCV 92.7 fL 80.0-1 00.0 normal Not Available [address], [address], 10/19/2022 07:57:28 10/19/1910/19/2022 CBC (INCL UDES DIFF/ PLT) MCH 29.9 pg 27.0-3 3.0 normal Not Available [address], [address], 10/19/2022 07:57:28 10/19/1910/19/2022 CBC (INCL UDES DIFF/ PLT) MCHC 32.2 g/dL 32.0-3 6.0 normal Not Available [address], [address], 10/19/2022 07:57:28 10/19/1910/19/2022 CBC (INCL UDES DIFF/ PLT) RDW 13.2 % 11.0-1 5.0 normal Not Available [address], [address], 10/19/2022 07:57:28 10/19/1910/19/2022 CBC (INCL UDES DIFF/ PLT) platelet count 290 thous and/u L 140-40 0 normal Not Available [address], [address], 10/19/2022 07:57:28 10/19/1910/19/2022 CBC (INCL UDES DIFF/ PLT) MPV 11.2 fL 7.5-12 .5 normal Not Available [address], [address], 10/19/2022 07:57:28 10/19/1910/19/2022 CBC (INCL UDES DIFF/ PLT) absolute neutrophils 4137 cells /uL 1500-7 800 normal Not Available [address], [address], 10/19/2022 07:57:28 10/19/1910/19/2022 CBC (INCL UDES DIFF/ PLT) absolute lymphocytes 2093 cells /uL 850-39 00 normal Not Available [address], [address], 10/19/2022 07:57:28 10/19/19 23 10/19/2022 CBC (INCL UDES DIFF/ PLT) absolute monocytes 567 cells /uL 200-95 0 normal Not Available [address] [place], [address], 10/19/2022 07:57:28 10/19/19 23 10/19/2022 CBC (INCL UDES DIFF/ PLT) absolute eosinophils 161 cells /uL 15-500 normal Not Available [facility] [address], [address], 10/19/2022 07:57:28 10/19/1910/19/2022 CBC (INCL UDES DIFF/ PLT) absolute basophils 42 cells /uL 0-200 normal Not Available [facility] [address], [address], 10/19/2022 07:57:28 10/19/1910/19/2022 CBC (INCL UDES DIFF/ PLT) neutrophils 59.1 % normal Not Available [facility] [address], [address], 10/19/2022 07:57:28 10/19/1910/19/2022 CBC (INCL UDES DIFF/ PLT) lymphocytes 29.9 % normal Not Available [facility] [address], [address], 10/19/2022 07:57:28 10/19/1910/19/2022 CBC (INCL UDES DIFF/ PLT) monocytes 8.1 % normal Not Available [facility] [address], [address], 10/19/2022 07:57:28 10/19/19 23 10/19/2022 CBC (INCL UDES DIFF/ PLT) eosinophils 2.3 % normal Not Available [facility] [address], [address], 10/19/2022 07:57:28 10/19/19 23 10/19/2022 CBC (INCL UDES DIFF/ PLT) basophils 0.6 % normal Not Available [facility] [address], [address], 10/19/2022 07:57:28 10/19/1910/19/2022 T4, FREE T4, free 1.2 NG/dL 0.8-1. 8 normal Not Available [address] [address] [address] , [place], [address], 10/19/2022 07:57:29 10/19/1910/19/2022 TSH TSH 1.42 mIU/L 0.40-4 .50 normal Not Available [facility] [address] [address] [address] , [place], [address], 10/19/2022 07:57:30 10/19/1910/19/2022 VITAM IN D,25- OH,TO SHIRA,I A vitamin D,25-oh,tota l,ia 44 NG/mL 30-100 normal Vitam in D Statu s 25-OH Vitam in D: Defic iency : <20 ng/mL Insuf ficie ncy: 20 - 29 ng/mL Optim al: > or = 30 ng/mL For 25-OH Vitam in D testi ng on patie nts on D2-russ pplem entat ion and patie nts for whom quant itati on of D2 and D3 fract ions is requi red, the [facility] Ass[facility] eD(TM ) 25-OH VIT D, (D2,D 3), LC/MS /MS is recom leonard d: order code 41315 (sarina ents >2yrs ). See Note 1 Note 1 For addit ional infor suresh garcia e refer to http: //tutu Bailey stDia gnost ics.c om/fa q/FAQ 199 (This link is being provi ded for infor ehsan florian/ cooper delacruz purpo ses only. ) Not Available [facility] [address] [address] , [place], [address], 10/19/2022 07:57:31 10/19/1910/19/2022 AMYLA SE amylase 29 U/L 21-101 normal Not Available [facility] [address], [address], 10/19/2022 07:57:32 10/19/1910/19/2022 LIPAS E lipase 7 U/L 7-60 normal Not Available [address], [address], 10/19/2022 07:57:32 02/08/19 24 02/09/2023 HEPAT ITIS PANEL , ACUTE W/REF OMID TO CONFI RMATI ON hepatitis A IgM NON-RE ACTIVE non-re active normal For addit ional infor suresh garcia e refer to http: //edu esteban mendesque stdia gnost ics.c om/fa q/FAQ 202 (This link is being provi ded for infor matio nal/ educa breanna l purpo ses only. ) Not Available [address], [address], 02/09/2023 04:47:11 02/08/19 24 02/09/2023 HEPAT ITIS PANEL , ACUTE W/REF OMID TO CONFI RMATI ON hepatitis B surface antigen NON-RE ACTIVE non-re active normal For addit ional infor suresh garcia e refer to http: //[facility] [employer] om/fa q/FAQ 202 (This link is being provi ded for infor matio nal/ educa breanna l purpo ses only. ) Not Available [address] [place], [address], 02/09/2023 04:47:11 02/08/1902/09/2023 HEPAT ITIS PANEL , ACUTE W/REF OMID TO CONFI RMATI ON hepatitis B core antibody (IgM) NON-RE ACTIVE non-re active normal For addit ional infor suresh garcia e refer to http: //[facility] om/fa q/FAQ 202 (This link is being provi ded for infor matio nal/ educa breanna l purpo ses only. ) Not Available [address], [address], 02/09/2023 04:47:11 02/08/19 24 02/09/2023 HEPAT ITIS PANEL , ACUTE W/REF OMID TO CONFI RMATI ON hepatitis C antibody NON-RE ACTIVE non-re active normal HCV antib liu was non-r eacti ve. There is no labor atory evide nce of HCV infec tion. In most cases , no furth er actio n is requi red. Howev er, if recen t HCV expos ure is suspe cted, a test for HCV RNA (test code 53809 ) is sugge sted. For addit ional infor ehsan prince e refer to http: //[facility] esteban bailey stdia gnost ics.c om/fa q/FAQ 22v1 (This link is being provi ded for infor ehsan flroian/ educa breanna l purpo ses only. ) Not Available [facility] [address], [address], 02/09/2023 04:47:11 02/08/19 24 02/09/2023 GGT GGT 158 U/L 3-65 high Not Available [facility] [address], [address], 02/09/2023 04:47:13 03/19/19 24 03/19/2023 HEPAT IC FUNCT ION PANEL protein, total 6.7 g/dL 6.1-8. 1 normal Not Available [facility] [address], [address], 03/19/2023 18:09:42 03/19/19 24 03/19/2023 HEPAT IC FUNCT ION PANEL albumin 4.0 g/dL 3.6-5. 1 normal Not Available [facility] [address] [place], [address], 03/19/2023 18:09:42 03/19/19 24 03/19/2023 HEPAT IC FUNCT ION PANEL globulin 2.7 g/dL_ (calc ) 1.9-3. 7 normal Not Available [address], [address], 03/19/2023 18:09:42 03/19/19 24 03/19/2023 HEPAT IC FUNCT ION PANEL albumin/glob ulin ratio 1.5 (calc ) 1.0-2. 5 normal Not Available [address], [address], 03/19/2023 18:09:42 03/19/19 24 03/19/2023 HEPAT IC FUNCT ION PANEL bilirubin, total 0.5 mg/dL 0.2-1. 2 normal Not Available [address], [address], 03/19/2023 18:09:42 03/19/19 24 03/19/2023 HEPAT IC FUNCT ION PANEL bilirubin, direct 0.1 mg/dL < or = 0.2 normal Not Available [address], [address], 03/19/2023 18:09:42 03/19/19 24 03/19/2023 HEPAT IC FUNCT ION PANEL bilirubin, indirect 0.4 mg/dL _(kimmy c) 0.2-1. 2 normal Not Available [address], [address], 03/19/2023 18:09:42 03/19/19 24 03/19/2023 HEPAT IC FUNCT ION PANEL alkaline phosphatase 74 U/L 37-153 normal Not Available [facility] [email or web address] [address], [address], 03/19/2023 18:09:42 03/19/19 24 03/19/2023 HEPAT IC FUNCT ION PANEL AST 26 U/L 10-35 normal Not Available [address] [place], [address], 03/19/2023 18:09:42 03/19/19 24 03/19/2023 HEPAT IC FUNCT ION PANEL ALT 36 U/L 6-29 high Not Available [facility] [address] [place], [address], 03/19/2023 18:09:42 07/17/19 24 07/17/2023 COLOG UARD cologuard result reportable NEGATI VE negati ve normal NEGAT ANDREW TEST RESUL T. A negat andrew Colog uard resul t indic ates a low likel ihood that a color ectal cance r (CRC) or advan florence adeno ma (thang omato us polyp s with more advan florence pre-m align ant featu res) is prese nt. The chanc e that a perso n with a negat andrew Colog uard test has a color ectal cance r is less than 1 in 1500 (nega tive predi ctive value >99.9 %) or has an advan florence adeno ma is less than 5.3% (nega tive predi ctive value 94.7% ). These data are based on a prosp ectiv e cross -sect ional study of 10,00 0 indiv idual s at [facility] risk for color ectal cance r who were scree wendy with both Colog uard and colon oscop y. (Malina mcmanus T. et al, N Engl J Med 2014; 370(1 4):12 86-12 97) The giuliana l value (refe rence range ) for this assay is negat andrew. COLOG UARD RE-SC REENI NG RECOM MENDA TION: Perio dic color ectal cance r scree ming is an impor tant part of preve ntive healt hcare for asymp tomat ic indiv idual s at [facility] risk for color ectal cance r. Follo wing a negat andrew Colog uard resul t, the Ameri can Cance r Socie ty and U.S. Multi -Soci ety Task Force scree ming guide lines recom mend a Colog uard re-sc juany samaniego inter la of 3 years . Refer ences : Bonita can Cance r Socie ty Guide line for Color ectal Cance r Scree ming: https ://storm casarez cer.o rg/ca ncer/ colon -rect al-ca ncer/ detec tion- diagn osis- stagi ng/ac s-rec ommen datio ns.ht ml.; Lamont ARVIZU, Cathie SCHULTZ, Shayna BerriosK, Color ectal Cance r Scree ming: Recom menda tions for Physi cians and Patie nts from the U.S. Multi -Soci ety Task Force on Color ectal Cance r Scree ming , Abner torreog y 2017; 112:1 016-1 030. TEST DESCR IPTIO N: [place] site algor ithmi c omari sis of stool DNA-b iomi kers with hemog lobin immun oassa y. Quant itati ve value s of indiv idual bioma rkers are not repor table and are not assoc iated with indiv idual bioma rker resul t refer ence range s. Colog uard is inten ded for color ectal cance r scree ming of adult s of eithe r sex, 45 years or older , who are at [facility] for color ectal cance r (CRC) . Colog uard has been appro chava for use by the U.S. FDA. The perfo rmanc e of Colog uard was estab lishe d in a cross secti onal study of [facility] adult s aged 50-84 . Colog uard perfo rmanc e in patie nts ages 45 to 49 years was estim ated by [facility] omari sis of near- age group s. Colon oscop ies perfo rmed for a posit andrew brandon t may find as the most clini tigist signi talya fuller n: color ectal cance r [4.0% ], advan florence adeno ma (incl uding sessi le dione maria luisa polyp s great er than or equal to 1cm diame ter) [20%] or non- advan florence adeno ma [31%] ; or no color ectal neopl flo [45%] . These estim ates are deriv ed from a prosp ectiv e cross -sect ional nicki lai study of ,00 0 indiv idual s at [facility] risk for color ectal cance r who were scree wendy with both Colog uard and colon oscop y. (Malina Pennington al, N Engl J Med 2014; 370(1 4):12 86-12 97.) Colog uard may produ ce a false negat andrew or false posit andrew resul t (no color ectal cance r or preca ncero us polyp prese nt at colon oscop y follo w up). A negat andrew Colog uard test resul t does not guara ntee the absen ce of CRC or advan florence adeno ma (pre- cance r). The curre nt Colog uard nicki lai inter la is every 3 years . (Amer ican Cance r Socie ty and U.S. Multi -Soci ety Task Force ). Colog uard perfo rmanc e data in a 0 patie nt pivot al study using colon oscop y as the refer ence metho d can be acces sed at the follo wing locat ion: www.e xactl abs.c om/re sabas . Addit ional descr iptio n of the Colog uard test proce ss, warni ngs and preca ution s can be found at www.c mika adamsond.c om. Not Available [employer] (Cologuard Orders Only) [address] [facility] [address], [place], [address], 07/21/2023 10:08:36 12/08/19 22 12/07/2021 MAMMO , nicki lai, digit al, bilat eral No observ ation record ed. [id number] [facility] [address], [place], [address], 04/05/2022 06:07:08 08/31/19 23 08/30/2022 XR, ribs, unila teral [facility] [address] [place] [address] Patien t Name: KASEY YU Access ion #: [id number] Sex: F : 1960 6 Dictat ed By: Heather looney Attend ing Physic darci: FRANCK CALHOUN CE Orderi ng Physic darci: FRANCK CALHOUN CE Exam Date: 2022 14:57 PM Exam Name: XR RIBS LT WO CHEST Admitt ing Diagno sis(es ): CLINIC AL INFORM ATION: Sharp left-s ided rib pains. Fluoro scopy dyspne a. TECHNI QUE: AP and obliqu e views of the left ribs were obtain ed. COMPAR YOVANNY: None. FINDIN GS: No eviden ce of acute fractu re or other signif icant abnorm ality identi fied in the left ribs. There is no left pneumo thorax or pleura l effusi on. Left lung is clear. IMPRES ROMEL: No acute abnorm ality identi fied in the left ribs. Electr onical ly Signed by: Heather looney at 2022 16:14: 49 PM Page 1 [facility] (Imaging) [address] [place] [address], [address], 08/31/2022 08:17:48 11/02/19 23 11/01/2022 CT, abdom en + pelvi s, w/o contr ast [facility] [address] [phone] Patien t Name: KASEY YU Access ion #: [id number] Sex: F : 1960 5 Dictat ed By: Padma Elena Attend ing Physic darci: FRANCK CALHOUN CE Orderi ng Physic darci: FRANCK CALHOUN CE Exam Date: 2022 14:58 PM Exam Name: CT ABDOME N PELVIS WO Admitt ing Diagno sis(es ): Exam: CT abdome n and Pelvis withou t contra st Histor y: abdomi nal pain Compar yovanny Study: None availa ble at time of dictat ion. TECHNI QUE: Multid etecto r CT of the abdome n was perfor med from lung bases to pubic symphy sis. Imagin g was perfor med withou t IV contra st. Axial, silverio l and sagitt al multip lanar reform ats were obtain ed from the axial data set by the techno logist . Radiat ion Dose : 1. Abdome n/Pelv is: CTDIvo l 16.2 mGy, DLP 891.6 mGy*cm . FINDIN GS: Evalua tion of solid organs is limite d due to lack of intrav enous contra st use. Lung Bases: Limite d lung bases are unrema rkable . Liver: Non-co ntrast appear ance of the liver is unrema rkable . Gallbl adder and Biliar y Tree: Unrema rkable Spleen : Unrema rkable Pancre as: Non-co ntrast appear ance of the pancre as is unrema rkable . Adrena l Glands : Unrema rkable Kidney s: Kidney s are grossl y normal withou t calcul i or hydron ephros is. Page 1 [facility] [address] [address] Patien t Name: KASEY YU Access ion #: [id number] Sex: F : 1960 5 Dictat ed By: Padma Elena Attend ing Physic darci: FRANCK CABRAL, SUDEEP Jefferyi Physic darci: FRANCK CALHOUN Exam Date: 2022 14:58 PM Exam Name: CT ABDOME N PELVIS WO Admitt ing Diagno sis(es ): Bladde r: Unrema rkable Bowel: No bowel wall thicke ming or dilata tion. The append ix is not visual ized; howeve r, no second darby findin gs of acute append icitis identi fied. Perito neum: No signif icant ascite s. No pneumo perito neum. Lymph nodes: No enlarg ed lymph nodes. Vascul ature: The visual ized abdomi nal aorta is normal in size and calibe r. Evalua tion of abdomi nal and pelvic vessel s is limite d due to lack of intrav enous contra st. Pelvic Organs : Unrema rkable . Muscul oskele shira: No acute osseou s abnorm ality. Soft tissue s: Unrema rkable . IMPRES ROMEL: No acute abdomi nal or pelvic findin gs. Radiat ion optimi zation : [facility] CT [facility] use at least one of these dose optimi zation techni ques: automa maria luisa exposu re contro l? mA and/or kV adjust ment per patien t size (inclu marya target ed exams where dose is matche d to clinic al indica tion)? or iterat andrew recons tructi on. Electr onical ly Signed by: Padma Elena at 2022 16:30: 52 PM Page [address] (Imaging) [address] [place], [address], 11/01/2022 17:33:31 12/13/19 23 12/11/2022 MAMMO , nicki lai, digit al, bilat eral No observ ation record ed. [address] [facility] [address], [place], [address], 12/12/2022 09:18:30 12/14/19 23 12/11/2022 MAMMO nicki, digit al, bilat eral No observ ation record ed. [address] [facility] [address], [place], [address], 12/13/2022 17:18:36 12/14/19 23 12/11/2022 MAMMO nicki, digit al, bilat eral No observ ation record ed. [email or web address] [facility] [address], [place], [address], 12/20/2022 17:03:09 01/03/20 23 12/11/2022 MAMMO , scree ming, digit al, bilat eral No observ ation record ed. [email or web address] Not Available 2022 15:36:17 02/12/19 24 02/06/2023 lab* No observ ation record ed. [email or web address] Not Available 2023 13:42:56 02/12/19 lab* No observ ation record ed. [email or web address] Not Available 2023 13:42:57 02/19/19 24 02/19/2023 US, abdom en, limit ed [facility] [address] [place] [address] Patialexsander barby Name: KASEY YU Access ion #: [id number] Sex: F : 1960 8 Dictat ed By: Heather looney Attend ing Physic darci: FRANCK CALHOUN CE Orderi ng Physic darci: FRANCK CALHOUN CE Exam Date: 2023 09:34 AM Exam Name: US ABDOME N SINGLE ORGAN Admitt ing Diagno sis(es ): CLINIC AL INFORM ATION: Elevat ed liver functi on tests. TECHNI QUE: Graysc steff sonogr aphic imagin g of the right upper quadra nt of the abdome n was perfor med, assist ed by color Dopple r techni ques. COMPAR YOVANNY: No prior studie s. FINDIN GS: The gallbl adder wall measur es 2.2 mm in thickn ess, within normal limits . Multip le shadow ing gallst ones are seen in the gallbl adder. Gallbl adder is disten ded, measur ing up to 10.4 x 4.2 cm. Negati ve report ed sonogr aphic [place] sign. The common bile duct measur es 6.3 mm in diamet er, within normal limits . The liver is normal in size and echote xture. No focal lesion s. The pancre as is partly obscur ed, likely by bowel gas. The visual ized portio ns appear normal . The right kidney measur es 10.5 cm. There is no stone or hydron ephros is. Right renal cortic al echoge nicity and cortic al thickn ess are within normal limits . IMPRES ROMEL: Cholel ithias is with disten ded gallbl adder. No sonogr aphic eviden ce of acute cholec ystiti s. Correl ate with clinic al jamil wetzel. Electr onical ly Signed by: Heather looney at 2023 11:21: 40 AM Page [address] (Imaging) [address], [place], [address], 02/19/2023 12:29:36 05/23/19 24 05/23/2023 sleep study , diagn ostic (PROC ) No observ ation record ed. [address], [place], [address], 05/24/2023 06:42:04 12/19/19 24 12/18/2023 MAMMO , scree ming, bilat eral No observ ation record ed. [address] [facility] [address], [place], [address], 12/19/2023 09:35:53 12/19/19 24 12/18/2023 MAMMO , scree ming, bilat eral No observ ation record ed. [email or web address] [facility] [address], [place], [address], 12/20/2023 10:45:51 Result Notes None recorded. Problems Name Problem SNOMED Code Status Onset Date Resolution Date Notes Provider Name and Address Organization Details Recorded Time Plantar fasciitis of right foot 6869374408515 9101 Active Not Available [facility] 3 06:00:45 Venous varices 746398189 Active 2021 Not Available [facility] 3 06:00:45 Acute sinusitis 74845775 Active 2021 Not Available [facility] 3 06:00:45 Anxiety disorder 211743900 Active 2018 Not Available [facility] 3 06:00:45 Osteomyeli tis of lower leg 34665281 Active Not Available [facility] 3 06:00:46 Morbid obesity 341335902 Active 2021 Not Available [facility] 3 06:00:46 Screening for malignant neoplasm of colon Active 2021 Not Available [facility] 3 06:00:46 Pain in right foot 9950307767388 07 Active Not Available [facility] 3 06:00:46 Vitamin D deficiency 05302122 Active 2021 Not Available [facility] 3 06:00:46 Depressive disorder 75653524 Active Not Available [facility] 3 06:00:46 Migraine 06994131 Active 2020 Not Available [facility] 3 06:00:46 Allergic rhinitis 00345866 Active 2021 Not Available [facility] 3 06:00:46 Rib pain 475316276 Active 2022 Ronda Crocker CMA null, [place] [facility] 3 14:20:09 Abdominal pain 24848670 Active 2022 Benedict Calhoun MD [address], [place], [address] , [place] [facility] 3 10:56:13 Obese class I 5243738484746 07 Active 2022 Benedict Calhoun MD [address], [place], [address] , [place] [facility] 3 11:00:18 Thoracic back pain 808340626 Active 2022 Ronda Crocker CMA null, [place] [facility] 3 12:05:11 Palpitatio ns 36226272 Active 2022 Benedict Calhoun MD [address], [place], [address] , [place] [facility] 3 17:47:33 Hyperlipid emia 11422453 Active 2022 Benedict Calhoun MD [address], [place], [address] , [facility] [employer] [facility] [employer] 3 17:47:59 Liver enzymes level above reference range 472376248 Active 2023 GRAY Chavira, [place] [employer] [facility] [employer] 4 17:28:57 Cholelithi asis without obstructio n 31706223 Active 2023 Benedict Calhoun MD [address], [place], [address] , [employer] [facility] [employer] 4 12:29:58 Atrial fibrillati on 69678727 Active 2023 Benedict Calhoun MD [address], [place], [address] , [employer] [facility] [employer] 4 10:06:40 Senile osteoporos is 04945858 Active 2023 Savita Juarez null, [place] [employer] [facility] [employer] 4 17:14:50 Acute bronchitis 82504050 Active 2023 Benedict Calhoun MD [address], [facility] [address], [place], [address] , [employer] [facility] [employer] 4 10:16:47 Problem Notes None recorded. Procedures Surgical History None recorded. Imaging Results Imaging Date Name Status LastModified by Organiz atformerly [facility] Details LastModified Time 12/07/2021 MAMMO, screening, digital, bilateral completed [id number] [facility] [address], [place], [address], 04/05/2022 06:07:08 08/30/2022 XR, ribs, unilateral completed [address] (Imaging) [address] [place], [address], 08/31/2022 08:17:48 11/01/2022 CT, abdomen + pelvis, w/o contrast completed [address] (Imaging) [address] [place], [address], 11/01/2022 17:33:31 12/11/2022 MAMMO, screening, digital, bilateral completed [email or web address] [facility] [address], [place], [address], 12/12/2022 09:18:30 12/11/2022 MAMMO, screening, digital, bilateral completed [email or web address] [facility] [address], [place], [address], 12/13/2022 17:18:36 12/11/2022 MAMMO, screening, digital, bilateral completed [email or web address] [facility] [address], [place], [address], 12/20/2022 17:03:09 12/11/2022 MAMMO, screening, digital, bilateral completed [email or web address] Information not available 01/02/2023 15:36:17 02/06/2023 lab* completed Information no t available 03/20/2023 13:42:56 02/12/2023 lab* completed Information no t available 03/20/2023 13:42:57 02/19/2023 US, abdomen, limited completed [email or web address] [facility] (Imaging) [address] [facility], [place], [address], 02/19/2023 12:29:36 05/23/2023 sleep study, diagnostic (PROC) completed [facility] [address], [place], [address], 05/24/2023 06:42:04 12/18/2023 MAMMO, screening, bilateral completed [email or web address] [facility] [address], [place], [address], 12/19/2023 09:35:53 12/18/2023 MAMMO, screening, bilateral completed [email or web address] [facility] [address], [place], [address], 12/20/2023 10:45:51 Procedure Notes None recorded. Medical Equipment None Reported. Allergies Allergen ID Allergen Name Allergen Category Reaction Reaction Severity Criticality Documentation Date Start Date Code Code System Note Provider Name and Address Organization Details Recorded Time 29577 Product containin g penicilli n (product) medicatio n other Not available Not available 04/05/2022 82055 8001 SNOMED Not Available [facility] 06:07:00 Medications Name Sig Start Date Stop Date Status Note LastModified by Organization Details LastModified Time naproxen 375 mg tablet Take 1 tablet twice a day by oral route. active Not Available Not Available No t Available azithromyci n 250 mg tablet TAKE 2 TABLETS (500 MG) BY ORAL ROUTE ONCE DAILY FOR 1 DAY THEN 1 TABLET (250 MG) BY ORAL ROUTE ONCE DAILY FOR 4 DAYS active Not Available Not Available No t Available benzonatate 200 mg capsule TAKE 1 CAPSULE BY MOUTH THREE TIMES DAILY active Not Available Not Available No t Available citalopram 10 mg tablet Take 1 tablet every day by oral route. 09/28 completed Not Available Not Available Not Available clindamycin HCl 150 mg capsule TAKE 3 CAPSULES BY MOUTH EVERY 8 HOURS 10/14 completed Not Available Not Available Not Available triamcinolo ne acetonide 0.1 % topical cream APPLY A THIN LAYER TO THE AFFECTED AREA(S) BY TOPICAL ROUTE 2 TIMES PER DAY as needed 2020 active Not Available Not Available Not Avai lable alprazolam 0.5 mg tablet take one tablet one half hour before procedure , repeat at the beginning of the test if needed 01/21 completed Not Available Not Available Not Available baclofen 10 mg tablet Take 1 tablet 4 times a day by oral route. 01/21 completed Not Available Not Available Not Available Transderm-S helicopter dispatcher 1 mg over 3 days transdermal patch Apply 1 patch every 72 hours by transderm al route. 04/22 completed Not Available Not Available Not Available dofetilide 500 mcg capsule TAKE 1 CAPSULE BY MOUTH TWICE DAILY active Not Available Not Available No t Available Bactrim DS 800 mg-160 mg tablet Take 1 tablet every 12 hours by oral route. 01/21 completed Not Available Not Available Not Available Lexapro 10 mg tablet Take 1 tablet every day by oral route. 01/21 completed Not Available Not Available Not Available metoprolol tartrate 25 mg tablet active Not Available Not Available No t Available Multaq 400 mg tablet 10/14 completed Not Available Not Available Not Available Xarelto 20 mg tablet TAKE 1 TABLET BY MOUTH DAILY WITH BREAKFAST active Not Available Not Available No t Available Vitals Date Recorded Body mass index (BMI) Body height Oxygen saturation Oxygen saturation in Arterial blood by Pulse oximetry Heart rate Respiratory rate Body temperature Body weight Systolic blood pressure Diastolic blood pressure Provider Name and Address Organization Details Last Updated DateTime 2 40.9 kg/m2 172.72 cm 99 % 99 % 80 /min 12 /min 97.8 [degF] 826002. 35 g 126 mm[Hg] 82 mm[Hg] Not Available [facility] 3 05:59:31 Date Recorded Body mass index (BMI) Body height Oxygen saturation Oxygen saturation in Arterial blood by Pulse oximetry Heart rate Body temperature Body weight Systolic blood pressure Diastolic blood pressure Provider Name and Address Organization Details Last Updated DateTime 2 40.6 kg/m2 172.72 cm 97 % 97 % 88 /min 96.8 [degF] 976460. 16 g 124 mm[Hg] 70 mm[Hg] Not Available [facility] 3 05:59:31 Date Recorded Body height Body mass index (BMI) Body weight Heart rate Body temperature Oxygen saturation Oxygen saturation in Arterial blood by Pulse oximetry Systolic blood pressure Diastolic blood pressure Provider Name and Address Organization Details Last Updated DateTime 3 172.72 cm 34 kg/m2 746049. 89 g 62 /min 97 [degF] 95 % 95 % 118 mm[Hg] 78 mm[Hg] Sherice Lang [place] [facility] [employer] [facility] 3 10:47:23 Date Recorded Body height Body mass index (BMI) Body weight Body temperature Oxygen saturation Oxygen saturation in Arterial blood by Pulse oximetry Systolic blood pressure Diastolic blood pressure Provider Name and Address Organization Details Last Updated DateTime 3 172.72 cm 33.6 kg/m2 905535. 91 g 97 [degF] 97 % 97 % 122 mm[Hg] 84 mm[Hg] Sherice YOO - [facility] [place] [facility] 3 17:20:34 Date Recorded Heart rate Heart rate Provider Name and Address Organization Details Last Updated DateTime 11/27/2022 106 /min 106 /min Benedict Calhoun MD [address], [place], [address], [facility] 11/27/2022 17:48:53 Date Recorded Body height Body weight Heart rate Body temperature Oxygen saturation Oxygen saturation in Arterial blood by Pulse oximetry Systolic blood pressure Diastolic blood pressure Provider Name and Address Organization Details Last Updated DateTime 4 172.72 cm 072337. 86 g 76 /min 97.6 [degF] 97 % 97 % 128 mm[Hg] 80 mm[Hg] KADEN Abbasi [facility] 4 16:45:44 Social History Question Answer Notes LastModified by Organizat ion Details LastModified Time In The 14 Days Before Symptom Onset, Have You Had Close Contact With A Laboratory-confirme d COVID-19 While That Case Was Ill? No [id number] Information not available 04/05/2022 In The 14 Days Before Symptom Onset, Have You Had Close Contact With A Person Who Is Under Investigation For COVID-19 While That Person Was Ill? No [id number] Information not available 04/05/2022 Have You Recently Traveled Abroad? No [id number] Information not available 04/05/2022 Sex: Unknown Functional Status None recorded. Mental Status None recorded. Family History Nothing Reported Notes:Mother 85 living Asthm a, HTN and obstructive uropathy Father 86 CHF, AFIB and HTN One brother [facility] Medical History Condition Response NERVE DISEASE N BLINDNESS N RHEUMATIC FEVER N KIDNEY STONES N BLADDER PROBLEMS N MRSA N OTHER # 1 N POLIO N LUNG DISEASE/DISORDER N HISTORY OF DRUG ABUSE N RADIATION / CHEMOTHERAPY N COPD N Other # 2 N BLOOD DISEASES N EAR OR HEARING PROBLEMS N MUMPS N SHINGLES N BOWEL PROBLEMS N DEPRESSION (INCLUDING POST ) N STROKE/TIA N ULCERS N BENIGN PROSTATIC HYPERPLASIA N MEASLES N HYPOTENSION N MYOCARDIAL INFARCTION N OBESITY N GERD/NAUSEA N ANEURYSM N URINARY/BLADDER/KIDNEY PROBLEMS N CORONARY ARTERY DISEASE (CAD) N ADDICTION CONCERNS N ENDOMETRIOSIS N Impotence N USE OF BLOOD THINNERS N SKIN PROBLEMS N GASTROINTESTINAL DISORDER N PERIPHERAL VASCULAR DISEASE N MUSCLE,JOINT OR BONE PROBLEMS N GASTROINTESTINAL BLEEDING N BLOOD CLOTS N ASTHMA N CATARACTS N ERECTILE DYSFUNCTION N VARICOSITIES N GI PROBLEMS N Low Testosterone N INFERTILITY N AIDS/HIV N CHEMOTHERAPY / RADIATION N LIVER DISEASE N MALE HYPOGONADISM N HYPERTENSION N Deficiency N TOURETTE'S N ANXIETY DISORDER N BLOOD TRANSFUSION N ANEMIA/BLOOD DISORDER N CHRONIC EAR INFECTIONS N BRONCHITIS N TUBERCULOSIS N GLAUCOMA N FOOT PROBLEM N DIVERTICULITIS N CHICKENPOX N SLEEP APNEA N INFECTIOUS DISEASE N HEART ARRHYTHMIA N PROSTATE N INSOMNIA N HIGH CHOLESTEROL / HYPERLIPIDEMIA N HYPERTHYROIDISM N EYE PROBLEMS N EDEMA N CHRONIC PAIN SYNDROME N HYPOTHYROIDISM N CAROTID BLOCKAGE N CONSTIPATION N BACK / NECK PROBLEMS N HAVE YOU BEEN HOSPITALIZED OR SEEN IN [facility] ER IN THE PAST YEAR ? N ATHEROSCLEROSIS N BREAST PROBLEMS N DIALYSIS N ECZEMA N OSTEOPOROSIS N ARTHRITIS N NO SIGNIFICANT PAST MEDICAL HISTORY N APPENDICITIS N DIABETES, TYPE N BAD TEETH N ENT N HEARTBURN / REFLUX N AUTISM SPECTRUM DISORDER (ASD) N HEPATITIS / LIVER DISEASE N GOUT N SLEEP DISORDER N ALZHEIMER'S DISEASE N Brain Problems N HERPES N DEMENTIA N HEADACHES/MIGRAINES Y SEIZURES/EPILEPSY N VASCULAR DISEASE N PACEMAKER N Blood Disorder N DIZZINESS N HEART DISEASE/HEART PROBLEMS N KIDNEY DISEASE N MULTIPLE SCLEROSIS N CARDIAC ARRHYTHMIA N CANCER: SPECIFY N ATRIAL FIBRILLATION N Gall Stones N PULMONARY EMBOLISM N AUTOIMMUNE DISEASE N Gynecological HistoryNo gynecological history recorded. Obstetrics History GPAL:G 0 P 0 0 0 0 Immunizations Vaccine Type Date Status Note Provider Nam e and Address Organization Details Recorded Time COVID-19 Non-[place] Vaccine, Product Unknown 1 completed Not Available [facility] 04/05/2022 06:06:52 COVID-19, mRNA, LNP-S, PF, 30 mcg/0.3 mL dose 1 completed Not Available [facility] 04/05/2022 06:06:52 zoster, unspecified formulation 8 completed Not Available [facility] 04/05/2022 06:06:52 Past Encounters Encounter ID Performer Location Encounter Start Date Encounter Closed Date Diagnosis/Indication Diagnosis SNOMED-CT Code Diagnosis ICD10 Code Diagnosis Note [id number] [facility] [place] Internal Med [facility] [address] [facility] [address] [place] [address] 09/20/2020 00:00:00 09/20/2020 11:15:33 [id number] [facility] Internal Med [facility] [address] [address] 03/21/2021 00:00:00 03/21/2021 11:06:24 [id number] [facility] Internal Med [facility] [address] [address] 10/17/2021 00:00:00 10/17/2021 10:24:39 [id number] Benedict Calhoun MD [facility] Internal Med [facility] [address] [address] 10/18/2022 10:39:04 10/18/2022 11:07:31 Abdominal pain 92211405 R10.9 Obese class I 1500801864 91211 E66.9 Screening for cardiovascular system disease 036551154 Z13.6 Vitamin D deficiency 347 61949 E55.9 [id number] Benedict Calhoun MD S_[facility] Internal Med [facility] [address] [address] 11/27/2022 16:48:55 11/27/2022 17:58:13 Palpitations 64420773 R00.2 Hyperlipidemia 58292177 E78.5 Obese class I 8919629684 20902 E66.9 [id number] Benedict Calhoun MD S_[facility] Internal Med [facility] [address] [address] 10/15/2023 16:41:02 10/15/2023 17:21:10 Atrial fibrillation 20742863 I48.91 Hyperlipidemia 17439620 E78.5 Obese class I 8096563513 54506 E66.9 Health Concerns Section Related Observation LastModified by Organization Detai ls LastModified Time None Recorded Concern Status LastModified by Organization Details LastModified Time None Recorded Advance Directives Directive None Recorded Payers Encounter Date Sequence Insurance Name Policy Number Policy Lara Covered Member ID Lara Member ID Guarantor Name 10/18/2022 1 [place] [id number] Jimmie Yu [id number] Erna Yu 11/27/2022 1 [place] [id number] Jimmie Yu [id number] Erna Yu 10/15/2023 1 [facility] [id number] Jimmie Yu [id number] Erna Yu Notes Date Note Type Note Provider Name and Address Organization Details Recorded Time 3 text/html Patient Name: Erna YuDate Of Service: Sunday ( 10.18.2022 ): 1960 Age: 62 There has been approximately a 43.5 lb weight loss since 10/17/2021. This represents approximately a 16.3% change in weight. Weight change attributable to lifestyle changes. Vital Signs:Blood Pressure: Sitting Rt. Arm 118/78Pulse: Sitting 62 /min and RegularRespirations: 12Height 68 in or 1.7 mWeight 223.5 lb or 101.4 kgBMI 34.0Temperature: 97 F or 36.1 CPulse Oximetry: 95 % at rest on no oxygen Chief Complaint: Addressed in HPI Problems or conditions discussed in the HPI were the only ones reviewed during the encounter.Only social and family history addressed in the HPI were reviewed during this encounter. Attendant(s): NoneConstitutional and Systemic Symptoms: none Medication Reconciliation: from medication list. History of Present Illness #1. Complaining of a 4-6 week history of some atypical left-sided chest wall and upper left upper abdominal pain. Associated with any change in bowel habits. There has been no attending nausea, vomiting, diarrhea or constipation. Aggravated some extent by movement. Has not been doing a lot of physical activity may account for the pain outside of sometimes caring her grandchildren on her left side. Seems to be quite concerned about a. A does the blood work. Because of the chronicity the pain the fact that she is so concerned recommend getting a CT scan of the abdomen the pelvis without contrast help rule out any type of intra-abdominal masses. Also check blood work: #2. Hx of obesity. Currently Class 1 Obesity BMI 30-34.99. Has tried numerous dietary support and supplements with no benefit. Instructed on the health consequences of the obese status particularly cancer - diabetes and heart disease. Discussed new modalities of weight loss including GLP-1 medications that are used to treat diabetes. Potential candidate for bariatric surgery: No. Wishes to be evaluated by Dietary: No and was offered to be evaluated and instructed by estate planner on weight loss diet.ADRs List Reviewed 10/18/2022enicillin RashVaccination and Frpzlxhjaydb0100-29 Covid Arlyps4887-93 ShingrixSurgical HistoryLt. Ankle Surgery, Lt. 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 This represents approximately a .7% change in weight. Weight change attributable to lifestyle changes. Vital Signs:Blood Pressure: Sitting Rt. Arm 120/60Pulse: Sitting 106 /min and IrregularRespiratory Rate: 12Height 68 in or 1.7 mWeight 225 lb or 102.1 kgBMI 34.2Temperature: 97 F or 36.1 C Chief Complaint: Addressed in HPI Problems or conditions discussed in the HPI were the only ones reviewed during the encounter.Only social and family history addressed in the HPI were reviewed during this encounter. Attendant(s): NoneConstitutional and Systemic Symptoms:none Medication Reconciliation: from medication list. Vawhpvctssr67/27/2023: CT scan of the abdomen and pelvis did not disclose any significant abnormalities liver spleen pancreas gallbladder kidneys or any pelvic organs. The pain is persisting will need to consider further diagnostic testing or GI evaluation. History of Present Illness #1. Complains of palpitations and irregular beating of the heart on intermittent basis. Today the heart rate is slightly increased with associated chest pain shortness of breath or any other cardiovascular symptoms. Has had irregular beating the heart as well as some atypical pain in the left upper quadrant. Had been see by Gastroenterology was considering the possibility upper endoscopy. One hundred have an EKG performed.: #2. Type II Hypercholesterolaemia: Currently taking medication and tolerating well. No interval complaints of any muscle pain or arthralgia. No significant liver changes with medications. Last lipid panel: fair control. Therapy reviewed regarding treatment of cholesterol management and include diet and Medication. #3. Hx of obesity. Currently Class 1 Obesity BMI 30-34.99. Has tried numerous dietary support and supplements with no benefit. Instructed on the health consequences of the obese status particularly cancer - diabetes and heart disease. Discussed new modalities of weight loss including GLP-1 medications that are used to treat diabetes. Potential candidate for bariatric surgery: No. Wishes to be evaluated by Dietary: No and was offered to be evaluated and instructed by estate planner on weight loss diet.ADRs List Reviewed 3Penicillin RashVaccination and Zokjiwvorisx5725-63 Covid Wwwqoc9912-37 ShingrixSurgical HistoryLt. Ankle Surgery, Lt. Femur SurgeryPreventative Testing Confirmed by Our Xsuvxcs4610/18/2022 ALBUMIN 4.3 G/DL N102/06/2021 MAMMOGRAM DEXA SCAN03/12/2018 COLOGUARD /10/2007 HAIC 5.7 % OF TOTAL HGB NSocial HistoryDoes not smokeDrinks sociallyWorks as a cashierFamily HistoryMother 83 living Asthma, HTN and obstructive uropathyFather 84 CHF and HTNOne [facility] eBnedict Calhoun MD [address] [facility], [facility] [address], [place], [address], [place] [employer] 11/27/2022 17:52:44 4 text/html Patient Name: Erna Low Of Service: Sunday ( 10.15.2023 ): 1960 Age: 63 There has been approximately a 3.5 lb weight gain since 11/27/2022. This represents approximately a 1.6% change in weight. Weight change attributable to lifestyle changes. Vital Signs:Blood Pressure: Sitting Rt. Arm 128/80Pulse: Sitting 76 /min and RegularRespiratory Rate: 14Height 68 in or 1.7 mWeight 228.5 lb or 103.6 kgBMI 34.7Temperature: 97.6 F or 36.4 CPulse Oximetry: 97 % at rest on no oxygen Chief Complaint: Addressed in HPI Problems or conditions discussed in the HPI were the only ones reviewed during the encounter.Only social and family history addressed in the HPI were reviewed during this encounter. Attendant(s): NoneConstitutional and Systemic Symptoms:none Medication Reconciliation: from medication list. Magphlmylzs56/27/2023: CT scan of the abdomen and pelvis did not disclose any significant abnormalities liver spleen pancreas gallbladder kidneys or any pelvic organs. The pain is persisting will need to consider further diagnostic testing or GI evaluation. 02-19-2023: Ultrasound of the abdomen revealed a dilated gallbladder with multiple biliary calculi. Could be passing intermittent small stones to the duct. Recommend a repeat hepatic panel and consultation with surgeon for further evaluation. History of Present Illness #1. Atrial Fibrillation: Type: Paroxysmal with recurrent episodes lasting less than 7 days. Further classification: Non-valvular. Associated history of none. No attending hx of any shortness of breath, palpitations, syncopal or neurological symptoms. Current medications: Dofetilide, Metoprolol Succinate Er and Xarelto. Rate control: controlled ventricular response [id number] Criteria: congestive heart failure, hypertension, Age < 65 and and considered moderate risk for embolic phenomenon. Anticoagulation: Xarelto #2. Type II Hypercholesterolaemia: Currently taking medication and tolerating well. No interval complaints of any muscle pain or arthralgia. No significant liver changes with medications. Last lipid panel: fair control. Therapy reviewed regarding treatment of cholesterol management and include diet. #3. Hx of obesity. Currently Class 1 Obesity BMI 30-34.99. Has tried numerous dietary support and supplements with no benefit. Instructed on the health consequences of the obese status particularly cancer - diabetes and heart disease. Discussed other modalities of weight loss no. Potential candidate for bariatric surgery: Yes but does no wish to pursue. Wishes to be evaluated by Dietary: No and was offered to be evaluated and instructed by estate planner on weight loss diet. Active Medication ListDofetilide 500 UG CAPSULE One BidMetoprolol Succinate Er 25 MG TABLET, EXTENDED RELEASE One DailyXarelto 20 MG TABLET, FILM COATED One Daily Adverse Drug Reactions ReviewedPenicillin Rash Vaccination and Gloxzusgdcgv3708-48 Covid Wbkqvf2445-00 Shingrix Surgical Kjhmbvw8146-42 Lt. Ankle Iwpgcsc9139-39 Lt. Femur Surgery Preventative Testing( ) 07/07/2023 Cologuard 07/06/2026( ) 03/19/2023 Albumin 4.0 G/DL N( ) 12/11/2022 Mammogram 12/12/2023(X) 11/24/2020 DEXA Scan 11/24/2022( ) 08/14/2007 HAIC 5.7 % OF TOTAL HGB N Social HistoryDoes not smokeDrinks sociallyWorks as a cashierFamily HistoryMother 85 living Asthma, HTN and obstructive uropathyFather 86 CHF, AFIB and HTNOne brother living and [facility] Benedict Calhoun MD [address] [facility], [facility] [address], [place], [address], [place] [facility] [employer] 10/15/2023 17:09:56 OBGyn Episode No OBEpisode recorded.
--- OUTSIDE RECORDS SUMMARY | 2024-04-10 07:50 | XMS_ITS | Encounter Summary ---
Author Organization [facility] Healthcare Address [address] [place] [address] Care Team Providers Care Stile Ripsaw Operator Name Role Phone Benedict Calhoun MD Primary Care Provider Encounter Details Date Type Department Care Team (Late st Contact Info) Description 05/25/2023 Orders Only [facility] Health Information Management [address] [place] [id number] Scanning, Provider Social History Tobacco Use Types Packs/Day Years Used Date Smoking Tobacco: Never Passive Smoke Exposure: Never Smokeless Tobacco: Never AUDIT-C Answer Date Recorded Q1: How often do you have a drink containing alc ohol? Monthly or less 02/06/2023 Q2: How many drinks containi ng alcohol do you have on a typical day when you are drinking? 1 or 2 02/06/2023 Q3: How often do you have si x or more drinks on one occasion? Never 02/06/2023 Personal Safety Answer Date Recorded Getting School Help Needed Not on file 02/04 Comments Unknown Sex and Gender Information Value Date Recorded Sex Assigned at Not on file Legal Sex Female 10:47 AM STAFF MIDWIFE Gender Identity Not on file Sexual Orientation Not on file documented as of this encounter Plan of Treatment Not on file documented as of this encounter Procedures Procedure Name Priority Date/Time Associated Diagnosis Comments SLEEP LAB/STUDY - RESULT 05/25/2023 9:28 PM CDT SCAN - LABS 05/25/2023 9:28 PM CDT documented in this encounter Results * SLEEP LAB/STUDY - RESULT (05/25/2023 9:28 PM CDT) us Provider Scanning Final Result * SCAN - LABS (05/25/2023 9:28 PM CDT) us Provider Scanning Final Result documented in this encounter Visit Diagnoses Not on filedocumented in this encounter Care Teams Stile Ripsaw Operator Relationship Specialty Start Date End Date Benedict Calhoun MD PCP - General Internal Medicine 09/19/17 documented as of this encounter
== END 2024-04-10 07:47 | disposition home or self-care (01) ==
PROVIDERS: PCP Internal Medicine; Visit Provider Internal Medicine
DX: M81.0 Age-related osteoporosis without current pathological fracture (principal)
CPT/HCPCS: 77080

== ENCOUNTER 2024-07-16 08:17 | Outpatient (RCR) | payer BC, SELFPAY ==
[2024-07-16 10:43] VITALS: BMI 36.1
== END 2024-10-13 12:07 | disposition home or self-care (01) ==
LOC: ANHDMC 08:17
PROVIDERS: PCP Internal Medicine; Visit Provider Internal Medicine Cardiovascular Disease
DX: E66.811 Obesity, class 1 (principal); Z68.36 Body mass index [BMI] 36.0-36.9, adult; Z71.3 Dietary counseling and surveillance
CPT/HCPCS: 97802

== ENCOUNTER 2024-12-19 15:48 | Outpatient (CLI) | payer BC, SELFPAY ==
--- NOTE | ~2024-12-19 | MM_ITS ---
EXAMINATION: MM screening [facility] BI w artur HISTORY: Screening TECHNIQUE: Craniocaudal and mediolateral oblique 3-D tomosynthesis images were obtained and synthetic 2-D images were generated. CAD analysis was submitted and interpreted. COMPARISON: Comparison to multiple prior studies sequentially, with oldest reviewed study dated 09/02/2018. BREAST PARENCHYMAL COMPOSITION: Not dense: There are scattered areas of fibroglandular density. FINDINGS: There is no evidence of suspicious mass, calcification, or architectural distortion to suggest malignancy in either breast. There has been no suspicious interval change. IMPRESSION: 1. No mammographic evidence of malignancy. 2. Recommend routine screening mammography in one year. BI-RADS Category 1: Negative Reviewed, dictated and finalized at location [facility]
== END 2024-12-19 15:49 | disposition home or self-care (01) ==
PROVIDERS: PCP Internal Medicine; Visit Provider Internal Medicine
DX: Z12.31 Encounter for screening mammogram for malignant neoplasm of breast (principal)
CPT/HCPCS: 77063; 77067